=== PATIENT | female | born 1985 | race Caucasian/White ===

== ENCOUNTER 2017-05-15 18:21 | Emergency (ER) | payer OTHER ==
--- NOTE | 2017-05-15 20:04 | ED Physician Documentation ---
PD HPI URI - Stated complaint Stated Complaint: COUGH/EAR PX - Chief complaint Chief Complaint: Heent - History obtained from History obtained from: Patient - History of Present Illness Timing - onset: How many weeks ago (06/06) Timing duration: Weeks (06/06) Timing details: Gradual onset, Still present Associated symptoms: Ear pain (just the past 1-2 days), Dry cough (causing throat pain and headache from persistence of it.). No: Hemoptysis, Chest pain Contributing factors: No: Sick contact, Travel, Immunocompromised Worsened by: Other (coughin) Similar symptoms before: Has not had sx before Recently seen: Not recently seen Review of Systems Constitutional: reports: Chills, Myalgias, Fatigue. denies: Fever Ears: reports: Ear pain (for 2 days) Nose: reports: Congestion. denies: Sinus pressure / pain Throat: reports: Sore throat Respiratory: reports: Dyspnea, Cough. denies: Wheezing PD PAST MEDICAL HISTORY - Past Medical History Cardiovascular: None Respiratory: None Endocrine/Autoimmune: None IRS AGENT: Ovarian cysts - Past Surgical History Past Surgical 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 /IRS AGENT: section HEENT: Tonsil/Adenoidectomy - Present Medications Home Medications: Ambulatory Orders Medication Instructions Recorded Confirmed Albuterol Sulf [Ventolin Hfa 1 - 2 puffs INH Q4HR PRN #1 inhaler 05/15/17 Inhaler] Azithromycin [Zithromax] 250 mg PO DAILY #4 tablet 05/15/17 Benzonatate [Tessalon] 100 mg PO TID PRN #25 capsule 05/15/17 Dexamethasone [Decadron] 4 mg PO DAILY #5 tablet 05/15/17 Paroxetine HCl [Paxil] 20 mg PO DAILY 05/15/17 05/15/17 - Allergies Allergies/Adverse Reactions: Allergies Allergy/AdvReac Type Severity Reaction Status Date / Time NSAIDS (Non-Steroidal Allergy Severe Edema Verified 05/15/17 19:16 Anti-Inflamma Penicillins Allergy Severe Edema Verified 05/15/17 19:16 - Social History Does the pt smoke?: Yes Smoking Status: Current every day smoker Does the pt drink ETOH?: No Does the pt have substance abuse?: No - Immunizations Immunizations are current?: Yes - POLST Patient has POLST: No PD ED PE NORMAL - Vitals Vital signs reviewed: Yes - General General: Alert and oriented X 3, No acute distress, Well developed/nourished - HEENT HEENT: Pharynx benign. No: Ears normal (left is okay; right with redness and some distorted landmarks. ) - Neck Neck: Supple, no meningeal sign, Other (anterior adenopathy, mild, bilaterally. ) - Cardiac Cardiac: RRR, No murmur - Respiratory Respiratory: Clear bilaterally - Abdomen Abdomen: Soft, Non tender - Derm Derm: Normal color, Warm and dry, No rash Results - Vitals Vitals: Vital Signs - 24 hr 05/15/17 05/15/17 18:27 20:49 Temperature 36.7 C Heart Rate 113 H 94 Respiratory 18 18 Rate Blood Pressure 128/83 H 135/79 H O2 Saturation 95 96 Oxygen O2 Source Room air PD MEDICAL DECISION MAKING - ED course Complexity details: reviewed results, considered differential, d/w patient Departure - Departure Disposition: 01 Home, Self Care Clinical Impression: Upper respiratory infection Qualifiers: URI type: unspecified URI Qualified Code(s): J06.9 - Acute upper respiratory infection, unspecified Otitis media Qualifiers: Otitis media type: suppurative Chronicity: acute Laterality: right Recurrence: not specified as recurrent Spontaneous tympanic membrane rupture: without spontaneous rupture Qualified Code(s): H66.001 - Acute suppurative otitis media without spontaneous rupture of ear drum, right ear Condition: Stable Record reviewed to determine appropriate education?: Yes Instructions: ED Otitis Media Acute Adult, ED URI Viral W Wheezing Follow-Up: AMADEO LALA [Primary Care Provider] - Prescriptions: Albuterol Sulf [Ventolin Hfa Inhaler] 1 - 2 puffs INH Q4HR PRN #1 inhaler PRN Reason: Shortness Of Air/Wheezing Azithromycin [Zithromax] 250 mg PO DAILY #4 tablet Benzonatate [Tessalon] 100 mg PO TID PRN #25 capsule PRN Reason: Cough Dexamethasone [Decadron] 4 mg PO DAILY #5 tablet Comments: Use the albuterol inhaler 2 puffs 4 times a day for the next 7-10 days to decrease coughing and improve breathing. Decadron daily for 5 more days to decrease inflammation of the bronchioles and therefore less cough and better breathing. Tessalon if needed for cough. Drink lots of fluids. Zithromax for the ear infection and possible bronchitis, though both of these have a reasonable chance of being viral anyway but it is hard to tell that from bacterial. Recheck if not improving over the next several days. Once you are feeling better, the cough itself may persist some for another couple of weeks. Discharge Date/Time: 05/15/17 21:00
[2017-05-15] MEDS ORDERED: BENZONATATE 100 MG CAPSULE PO STA (20:16)
[2017-05-15] MEDS ORDERED: AZITHROMYCIN 250 MG TABLET PO STA (20:16)
[2017-05-15] MEDS ORDERED: HYDROcod/ACET 5/325 Prepack 6 PO ONE ×2 (20:16→20:27)
[2017-05-15] MEDS ORDERED: ALBUTEROL NEB 2.5 MG/3 ML INH STA (20:16)
[2017-05-15] MEDS ORDERED: DEXAMETHASONE 10 MG/ML VIAL PO STA (20:16)
[2017-05-15] MEDS ORDERED: BENZONATATE 100 MG CAPSULE PO ONE (20:26)
[2017-05-15] MEDS ORDERED: ALBUTEROL NEB 2.5 MG/3 ML INH ONE (20:26)
[2017-05-15] MEDS ORDERED: DEXAMETHASONE 10 MG/ML VIAL ONE (20:26)
[2017-05-15] MEDS ORDERED: AZITHROMYCIN 250 MG TABLET PO ONE (20:26)
[2017-05-15 20:50] VITALS: BP 135/79
== END 2017-05-15 21:00 | disposition home or self-care (01) ==
LOC: ED 18:21
DX: J06.9 Acute upper respiratory infection, unspecified (principal); H66.001 Acute suppurative otitis media without spontaneous rupture of ear drum, right ear; F17.200 Nicotine dependence, unspecified, uncomplicated
CPT/HCPCS: 94640; 99283; A9270; J7613

== ENCOUNTER 2018-03-11 18:13 | Emergency (ER) | payer OTHER ==
--- NOTE | 2018-03-11 18:33 | ED Physician Documentation ---
PD HPI LOWER EXT INJURY - Stated complaint Stated Complaint: LEFT ANKLE PX/FALL - Chief complaint Chief Complaint: Ext Problem - History obtained from History obtained from: Patient - History of Present Illness PD HPI LOW EXT INJURY LOCATION: Left, Foot Type of injury: Fall (She was standing up on a chair at home hanging some things and fell and hit her foot. This was today. She is unable to walk or bear weight. 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 - Past Surgical History Past Surgical 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 /ARMATURE INSPECTOR: section HEENT: Tonsil/Adenoidectomy - Present Medications Home Medications: Ambulatory Orders Medication Instructions Recorded Confirmed Knee Scooter 1 unit TD ONCE #1 03/11/18 Oxycodone HCl/Acetaminophen 1 - 2 each PO Q6H PRN #14 tablet 03/11/18 [Percocet 5-325 mg Tablet] - Allergies Allergies/Adverse Reactions: Allergies Allergy/AdvReac Type Severity Reaction Status Date / Time NSAIDS (Non-Steroidal Allergy Severe Edema Verified 03/11/18 18:19 Anti-Inflamma Penicillins Allergy Severe Edema Verified 03/11/18 18:19 - Social History Does the pt smoke?: Yes Smoking Status: Current every day smoker Does the pt drink ETOH?: No Does the pt have substance abuse?: No - Immunizations Immunizations are current?: Yes - POLST Patient has POLST: No PD ED PE NORMAL - Vitals Vital signs reviewed: Yes - General General: Alert and oriented X 3, No acute distress - Neck Neck: Supple, no meningeal sign, No bony TTP - Extremities Extremities: Other (Left foot: She is quite tender over the proximal forefoot, both in the middle and on the medial side. She has a mild small toenail injury. The ankle and proximal fibula are nontender.) - Neuro Neuro: Alert and oriented X 3, Normal speech Results - Vitals Vitals: Vital Signs - 24 hr 03/11/18 18:16 Temperature 36.5 C Heart Rate 85 Respiratory 18 Rate Blood Pressure 135/84 H O2 Saturation 100 Oxygen O2 Source Room air - Rads (name of study) L foot XR Radiology: EMP read contemporaneously (Concern for anterior Calcaneal fracture) CT L foot Radiology: EMP read contemporaneously (Nondisplaced fracture of the anterior superior process of the calcaneus) Procedures - Splint (location) LLE Splint applied by: Physician Type of splint: Other (Bulky Martinez splint without fiberglass) Other: Patient tolerated well, No complications, Neurovascular intact PD MEDICAL DECISION MAKING - Sepsis Event Vital Signs: Vital Signs - 24 hr 03/11/18 18:16 Temperature 36.5 C Heart Rate 85 Respiratory 18 Rate Blood Pressure 135/84 H O2 Saturation 100 Oxygen O2 Source Room air Departure - Departure Disposition: Home, Self Care Clinical Impression: Left calcaneal fracture Condition: Good Record reviewed to determine appropriate education?: Yes Instructions: ED Fx Foot Prescriptions: Knee Scooter 1 unit TD ONCE #1 Oxycodone HCl/Acetaminophen [Percocet 5-325 mg Tablet] 1 - 2 each PO Q6H PRN #14 tablet PRN Reason: pain Comments: Do not walk or bear weight on that leg. Use either the crutches with a knee scooter at all times. Do not take the splint off. Follow-up with the orthopedic surgeon on [facility]. Go to the [facility] tomorrow to check and make an appointment. Take the copy of the x-ray and CAT scan on CD with you. Return if worse. Elevate the leg as much as possible. Your blood pressure was elevated today on check into the emergency department. This does not mean that you have hypertension, it is a common phenomenon to come to the emergency department and have elevated blood pressure. I recommend that you see your primary care physician within the week to have it rechecked when you are feeling better. Do not drink or drive while taking narcotic pain medication. Note that many narcotic pain relievers also contain Tylenol/acetaminophen. Please ensure that your total dose of acetaminophen from all sources does not exceed 3 g (3000 mg) per day. You may get constipated while on this medication. Take a stool softener such as Colace twice a day while you are on it. Also add an [id number]-gnl-jeeewcu laxative such as senna or MiraLAX on any day that you do not have a bowel movement. If you received a narcotic pain medication or sedative while in the emergency department, do not drive for the next 24 hours. Discharge Date/Time: 03/11/18 20:35
--- NOTE | 2018-03-11 19:33 | XRAY Report ---
Reason: foot inj Procedure Date: 03/11/2018 Accession Number: [id number] / [id number] Procedure: XR - Foot 3 View LT CPT Code: FULL RESULT: EXAM: LEFT FOOT RADIOGRAPHY EXAM DATE: 03/11/2018 06:57 PM. CLINICAL HISTORY: Fall from chair. Foot injury. COMPARISON: None. TECHNIQUE: 3 views. FINDINGS: Bones: Oblique view demonstrates a distal calcaneal lucency concerning for nondisplaced fracture. Otherwise negative for traumatic or destructive bony abnormality. Joints: Normal. No subluxations. Soft Tissues: Unremarkable. IMPRESSION: Concern for nondisplaced distal calcaneal fracture on the oblique view. Otherwise, unremarkable left foot radiography. RADIA
[2018-03-11] MEDS ORDERED: oxyCODONE/ACET 5/325 Prepack 4 PO STA (20:15)
[2018-03-11 20:32] VITALS: BP 136/81
--- NOTE | 2018-03-11 20:41 | CT Report ---
Reason: poss calcaneal frx, fall Procedure Date: 03/11/2018 Accession Number: [id number] / [id number] Procedure: CT - Lower Extremity Left W/O CPT Code: FULL RESULT: EXAM: LEFT KNEE CT WITHOUT CONTRAST EXAM DATE: 03/11/2018 08:24 PM. CLINICAL HISTORY: Fall. Possible calcaneal fracture. COMPARISON: Radiograph from today. TECHNIQUE: Thin-section axial images were acquired of the knee without contrast. Post-processing: Coronal and sagittal reformats. Other: None. In accordance with CT protocol optimization, one or more of the following dose reduction techniques were utilized for this exam: automated exposure control, adjustment of mA and/or KV based on patient size, or use of iterative reconstructive technique. FINDINGS: Bones: There is a comminuted, nondisplaced fracture of the anterior superior process of the calcaneus. A benign bone island is in the talus. Joints: The joint spaces are preserved. No calcified loose bodies. No large effusion. Musculature: Normal. No fatty atrophy. Other: Heterotopic ossification in the dorsal talonavicular joint capsule indicates prior injury of that structure. IMPRESSION: Nondisplaced fracture of the anterior superior process of the calcaneus. RADIA
== END 2018-03-11 20:35 | disposition home or self-care (01) ==
LOC: ED 18:13
DX: F17.200 Nicotine dependence, unspecified, uncomplicated (principal); S92.025A Nondisplaced fracture of anterior process of left calcaneus, initial encounter for closed fracture; W07.XXXA Fall from chair, initial encounter; Y93.89 Activity, other specified
CPT/HCPCS: 29515; 99283

== ENCOUNTER 2018-05-27 00:16 | Outpatient (CLI) | payer OTHER | END 2018-05-27 00:17 | disposition EMS.NT | LOC: EMS 00:16 | PROVIDERS: ATTEND Surgery | DX: R05 Cough (principal); X00.8XXA Other exposure to uncontrolled fire in building or structure, initial encounter ==

== ENCOUNTER 2018-07-27 17:10 | Emergency (ER) | payer OTHER ==
[2018-07-27 17:20] VITALS: BP 146/102
--- NOTE | 2018-07-27 17:25 | ED Physician Documentation ---
PD HPI URI - Stated complaint Stated Complaint: FLU SYMPTOMS - Chief complaint Chief Complaint: Heent - History obtained from History obtained from: Patient - History of Present Illness Timing - onset: Today Timing duration: Days (1) Timing details: Gradual onset Pain level max: 0 Pain level now: 0 Associated symptoms: Fever, Nasal congestion, Rhinorrhea, Dry cough Improves by: Nothing Worsened by: Other (nothin) Recently seen: Not recently seen - Additional information Additional information: Mother and child with influenza A recently. Started feeling sick today. 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 - Past Surgical History Past Surgical 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 /RADIO MAINTAINER: section HEENT: Tonsil/Adenoidectomy - Present Medications Home Medications: Ambulatory Orders Medication Instructions Recorded Confirmed Knee Scooter 1 unit TD ONCE #1 03/11/18 Oxycodone HCl/Acetaminophen 1 - 2 each PO Q6H PRN #14 tablet 03/11/18 [Percocet 5-325 mg Tablet] Benzonatate [Tessalon Perle] 100 - 200 mg PO TID PRN #30 capsule 07/27/18 Oseltamivir [Tamiflu] 75 mg PO BID #10 capsule 07/27/18 - Allergies Allergies/Adverse Reactions: Allergies Allergy/AdvReac Type Severity Reaction Status Date / Time NSAIDS (Non-Steroidal Allergy Severe Edema Verified 07/27/18 17:20 Anti-Inflamma Penicillins Allergy Severe Edema Verified 07/27/18 17:20 - Social History Does the pt smoke?: Yes Smoking Status: Current every day smoker Does the pt drink ETOH?: No Does the pt have substance abuse?: No - Immunizations Immunizations are current?: Yes - POLST Patient has POLST: No PD ED PE NORMAL - Vitals Vital signs reviewed: Yes - General General: Alert and oriented X 3, No acute distress - HEENT HEENT: Ears normal, Moist mucous membranes, Pharynx benign - Neck Neck: Supple, no meningeal sign - Cardiac Cardiac: RRR, Strong equal pulses - Respiratory Respiratory: No respiratory distress, Clear bilaterally - Abdomen Abdomen: Soft, Non tender, Non distended - Derm Derm: Warm and dry, No rash - Extremities Extremities: No edema - Neuro Neuro: Alert and oriented X 3 - Psych Psych: Normal mood, Normal affect Results - Vitals Vitals: Vital Signs - 24 hr 07/27/18 17:11 Temperature 36.8 C Heart Rate 102 H Respiratory 18 Rate Blood Pressure 146/102 H O2 Saturation 99 Oxygen O2 Source Room air PD MEDICAL DECISION MAKING - ED course Complexity details: considered differential, d/w patient ED course: 33-year-old female with symptoms consistent with influenza. Recent exposure as well. Discussed risks and benefits of Tamiflu and she requested Tamiflu at this time. Will prescribe this for her. She is well-appearing, nontoxic. Patient counseled regarding signs and symptoms for which I believe and urgent re- evaluation would be necessary. Patient with good understanding of and agreement to plan and is comfortable going home at this time This document was made in part using voice recognition software. While efforts are made to proofread this document, sound alike and grammatical errors may occur. Departure - Departure Disposition: 01 Home, Self Care Clinical Impression: Influenza A Condition: Good Instructions: ED Flu Follow-Up: AMADEO LALA [Primary Care Provider] - Within 1 week Prescriptions: Benzonatate [Tessalon Perle] 100 - 200 mg PO TID PRN #30 capsule PRN Reason: Cough Oseltamivir [Tamiflu] 75 mg PO BID #10 capsule Comments: Go home and rest. Drink plenty of fluids. Return if you worsen. Discharge Date/Time: 07/27/18 17:29
== END 2018-07-27 17:29 | disposition home or self-care (01) ==
LOC: ED 17:10
DX: J10.1 Influenza due to other identified influenza virus with other respiratory manifestations (principal); F17.200 Nicotine dependence, unspecified, uncomplicated
CPT/HCPCS: 99283

== ENCOUNTER 2018-08-21 18:05 | Emergency (ER) | payer OTHER ==
--- NOTE | 2018-08-21 20:44 | XRAY Report ---
Reason: injury Procedure Date: 08/21/2018 Accession Number: [id number] / [id number] Procedure: XR - Elbow 3 View RT CPT Code: FULL RESULT: EXAM: RIGHT ELBOW RADIOGRAPHY EXAM DATE: 08/21/2018 08:17 PM. CLINICAL HISTORY: Elbow pain COMPARISON: None. TECHNIQUE: 3 views. FINDINGS: Bones: Normal. No fractures or bone lesions. Joints: Normal. No effusion. No subluxation. Soft Tissues: Normal. No soft tissue swelling. IMPRESSION: Negative elbow radiography. RADIA
--- NOTE | 2018-08-21 20:57 | ED Physician Documentation ---
PD HPI UPPER EXT INJURY - Stated complaint Stated Complaint: RIGHT ARM PAIN - Chief complaint Chief Complaint: Trauma Ext - History obtained from History obtained from: Patient - History of Present Illness Location: Right, Elbow Type of injury: Crush (van door was closed onto her right elbow, with pain laterally and with some soft tissue swelling. Hurts to bend/ROM of the elbow.) Where injury occurred: Home Timing - onset: Today Timing - details: Abrupt onset, Still present Worsened by: Moving, Palpating Associated symptoms: Swelling (lateral elbow and proximal forearm). 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 - Past Surgical History Past Surgical 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 /SUPERVISOR PROP MAKING: section HEENT: Tonsil/Adenoidectomy - Present Medications Home Medications: Ambulatory Orders Medication Instructions Recorded Confirmed Knee Scooter 1 unit TD ONCE #1 03/11/18 Oxycodone HCl/Acetaminophen 1 - 2 each PO Q6H PRN #14 tablet 03/11/18 [Percocet 5-325 mg Tablet] Benzonatate [Tessalon Perle] 100 - 200 mg PO TID PRN #30 capsule 07/27/18 Oseltamivir [Tamiflu] 75 mg PO BID #10 capsule 07/27/18 - Allergies Allergies/Adverse Reactions: Allergies Allergy/AdvReac Type Severity Reaction Status Date / Time NSAIDS (Non-Steroidal Allergy Severe Edema Verified 08/21/18 18:48 Anti-Inflamma Penicillins Allergy Severe Edema Verified 08/21/18 18:48 - Social History Does the pt smoke?: Yes Smoking Status: Current every day smoker Does the pt drink ETOH?: No Does the pt have substance abuse?: No - Immunizations Immunizations are current?: Yes - POLST Patient has POLST: No PD ED PE NORMAL - Vitals Vital signs reviewed: Yes - General General: Alert and oriented X 3, Well developed/nourished - Derm Derm: Normal color, Warm and dry - Extremities Extremities: Other (right lateral elbow and proximal forearm with local tenderness and mild swelling. No firmness of the tissue from swelling. antecubital area not focally tender. Guarded ROM of the elbow, but she can go to full extension slowly. No effusion of the elbow. ) - Neuro Neuro: Alert and oriented X 3, No motor deficit, No sensory deficit, Normal speech Results - Vitals Vitals: Oxygen O2 Source Room air - Rads (name of study) right elbow Radiology: Prelim report reviewed (no fractures.), EMP read contemporaneously, See rad report PD MEDICAL DECISION MAKING - ED course Complexity details: reviewed results (no fractures), considered differential, d/w patient Departure - Departure Disposition: 01 Home, Self Care Clinical Impression: Contusion of right elbow Qualifiers: Encounter type: initial encounter Qualified Code(s): S50.01XA - Contusion of right elbow, initial encounter Condition: Stable Record reviewed to determine appropriate education?: Yes Instructions: ED Contusion Elbow Follow-Up: AMADEO LALA [Primary Care Provider] - Comments: No fracture seen on x-ray. I presume will be sore for a couple a few days. Tylenol if needed for pains. Sling as needed for comfort and progress range of motion as able. Use of pain meds given tonight here if needed. I would not anticipate needing it longer than a day or so. Will likely be several days to week to be fully better. Discharge Date/Time: 08/21/18 22:32
[2018-08-21] MEDS ORDERED: ACETAMINOPHEN 325 MG TABLET PO STA (21:04)
[2018-08-21] MEDS ORDERED: HYDROcod/ACET 5/325 Prepack 4 PO STA (21:04)
[2018-08-21] MEDS ORDERED: oxyCODONE/ACET 5/325 Prepack 4 PO STA (21:28)
[2018-08-21 21:57] VITALS: BP 129/89
== END 2018-08-21 22:32 | disposition home or self-care (01) ==
LOC: ED 18:05
DX: S50.01XA Contusion of right elbow, initial encounter (principal); W23.0XXA Caught, crushed, jammed, or pinched between moving objects, initial encounter; Y92.810 Car as the place of occurrence of the external cause; F17.200 Nicotine dependence, unspecified, uncomplicated
CPT/HCPCS: 73080; 99282; 99283; A9270

== ENCOUNTER 2018-11-18 13:50 | Emergency (ER) | payer OTHER ==
[2018-11-18 14:03] VITALS: BP 145/86
--- NOTE | 2018-11-18 14:39 | ED Physician Documentation ---
PD HPI URI - Stated complaint Stated Complaint: COUGH/CONGESTION - Chief complaint Chief Complaint: Resp - History obtained from History obtained from: Patient - History of Present Illness Timing - onset: How many weeks ago (1) Timing details: Gradual onset, Still present (cough and dyspnea worse the past couple of days) Associated symptoms: Nasal congestion, Sore throat, Dry cough. 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 : None HEENT: None Psych: None Musculoskeletal: None Derm: None - Past Surgical History Past Surgical 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 /GERMAN TEACHER: section HEENT: Tonsil/Adenoidectomy - Present Medications Home Medications: Ambulatory Orders Medication Instructions Recorded Confirmed Benzonatate [Tessalon Perle] 100 - 200 mg PO TID PRN #30 capsule 07/27/18 Albuterol Sulf [Ventolin Hfa 1 - 2 puffs INH Q4HR PRN #1 inhaler 11/18/18 Inhaler] Benzonatate [Tessalon Perle] 100 - 200 mg PO TID PRN #30 capsule 11/18/18 Doxycycline Hyclate 100 mg PO BID #14 capsule 11/18/18 dexAMETHasone [Decadron] 4 mg PO DAILY #5 tablet 11/18/18 - Allergies Allergies/Adverse Reactions: Allergies Allergy/AdvReac Type Severity Reaction Status Date / Time NSAIDS (Non-Steroidal Allergy Severe Edema Verified 08/21/18 18:48 Anti-Inflamma Penicillins Allergy Severe Edema Verified 11/18/18 14:03 - Social History Does the pt smoke?: Yes Smoking Status: Current every day smoker Does the pt drink ETOH?: No Does the pt have substance abuse?: No - Immunizations Immunizations are current?: Yes - POLST Patient has POLST: No PD ED PE NORMAL - Vitals Vital signs reviewed: Yes - General General: Alert and oriented X 3, No acute distress, Well developed/nourished - HEENT HEENT: Ears normal, Pharynx benign - Neck Neck: Supple, no meningeal sign, No adenopathy - Cardiac Cardiac: RRR, No murmur - Respiratory Respiratory: Clear bilaterally - Derm Derm: Normal color, Warm and dry, No rash Results - Vitals Vitals: Oxygen O2 Source Room air PD MEDICAL DECISION MAKING - ED course Complexity details: considered differential, d/w patient Departure - Departure Disposition: 01 Home, Self Care Clinical Impression: Upper respiratory infection Qualifiers: URI type: unspecified URI Qualified Code(s): J06.9 - Acute upper respiratory infection, unspecified Condition: Stable Record reviewed to determine appropriate education?: Yes Instructions: ED URI Viral W Wheezing Follow-Up: AMADEO LALA [Primary Care Provider] - Prescriptions: Albuterol Sulf [Ventolin Hfa Inhaler] 1 - 2 puffs INH Q4HR PRN #1 inhaler PRN Reason: Shortness Of Air/Wheezing Benzonatate [Tessalon Perle] 100 - 200 mg PO TID PRN #30 capsule PRN Reason: Cough dexAMETHasone [Decadron] 4 mg PO DAILY #5 tablet Doxycycline Hyclate 100 mg PO BID #14 capsule Comments: Use the albuterol inhaler 2 to 3 puffs 4 times a day and extra times as needed for wheezing and cough. Decadron steroid for inflammation of the airways daily for the next 5 days. Add Tessalon if needed for cough suppression. Stay well- hydrated. These commonly are viral but sometimes will have a secondary bacterial component as in your case with the cough worsening. Add doxycycline antibiotic as directed. Recheck if not improving over the next few days and return if worsening. Discharge Date/Time: 11/18/18 16:09
[2018-11-18] MEDS ORDERED: BENZONATATE 100 MG CAPSULE PO STA (15:05)
[2018-11-18] MEDS ORDERED: ALBUTEROL NEB 2.5 MG/3 ML INH STA (15:05)
[2018-11-18] MEDS ORDERED: CHERRY SYRUP 10 ML UDC PO ONE (15:05)
[2018-11-18] MEDS ORDERED: DOXYCYCLINE 100 MG TABLET PO STA (15:05)
[2018-11-18] MEDS ORDERED: DEXAMETHASONE 10 MG/ML VIAL PO STA (15:05)
== END 2018-11-18 16:09 | disposition home or self-care (01) ==
LOC: ED 13:50
DX: J06.9 Acute upper respiratory infection, unspecified (principal); F17.200 Nicotine dependence, unspecified, uncomplicated
CPT/HCPCS: 94640; 99283; A9270

== ENCOUNTER 2018-11-29 14:41 | Emergency (ER) | payer OTHER ==
--- NOTE | 2018-11-29 14:58 | ED Physician Documentation ---
History of Present Illness - Stated complaint Stated Complaint: D/N LOSS OF APPETITE - Chief complaint Chief Complaint: Abd Pain - History obtained from History obtained from: Patient - Additonal information Additional information: Patient is a previously healthy 33-year-old female presenting with several days of general unwell feeling. Patient denies known fever, but reports difficulty with regulating her temperature. Patient denies chest pain or abdominal pain.However, she admits to nausea without vomiting and diarrhea. No urinary changes. Patient also reports lightheadedness. Patient saw her primary care physician yesterday who thought she was suffering from anxiety.No improving or worsening symptoms noted. Review of Systems Constitutional: denies: Fever Cardiac: denies: Chest pain / pressure GI: reports: Nausea. denies: Abdominal Pain, Vomiting, Diarrhea : denies: Dysuria PD PAST MEDICAL HISTORY - Past Medical History Cardiovascular: None Respiratory: None Neuro: None Endocrine/Autoimmune: None GI: None PATIENT ACCOUNTING REPRESENTATIVE: Ovarian cysts : None HEENT: None Psych: None Musculoskeletal: None Derm: None - Past Surgical History Past Surgical 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 /PATIENT ACCOUNTING REPRESENTATIVE: section HEENT: Tonsil/Adenoidectomy - Present Medications Home Medications: Ambulatory Orders Medication Instructions Recorded Confirmed No Known Home Medications 11/29/18 11/29/18 - Allergies Allergies/Adverse Reactions: Allergies Allergy/AdvReac Type Severity Reaction Status Date / Time NSAIDS (Non-Steroidal Allergy Severe Edema Verified 11/29/18 14:51 Anti-Inflamma Penicillins Allergy Severe Edema Verified 11/29/18 14:51 - Social History Does the pt smoke?: Yes Smoking Status: Current every day smoker Does the pt drink ETOH?: No Does the pt have substance abuse?: No - Immunizations Immunizations are current?: Yes - POLST Patient has POLST: No PD ED PE NORMAL - Vitals Vital signs reviewed: Yes - General General: Alert and oriented X 3, No acute distress, Well developed/nourished - HEENT HEENT: Atraumatic, Moist mucous membranes - Cardiac Cardiac: RRR, No murmur - Respiratory Respiratory: No respiratory distress, Clear bilaterally - Abdomen Abdomen: Soft, Non tender, Non distended - Derm Derm: Normal color, Warm and dry, No rash - Extremities Extremities: No deformity, No tenderness to palpate - Neuro Neuro: Alert and oriented X 3, No motor deficit, No sensory deficit - Psych Psych: Normal mood, Normal affect Results - Vitals Vitals: Vital Signs - 24 hr 11/29/18 14:45 Temperature 36.4 C L Heart Rate 90 Respiratory 18 Rate Blood Pressure 139/86 H O2 Saturation 97 Oxygen O2 Source Room air - Labs Labs: Laboratory Tests 11/29/18 11/29/18 11/29/18 15:42 15:42 16:45 WBC 11.3 H RBC 4.94 Hgb 14.8 Hct 43.5 MCV 88.1 MCH 30.0 MCHC 34.0 RDW 12.4 Plt Count 312 MPV 8.3 Neut # (Auto) 8.1 H Lymph # (Auto) 2.4 [place] # (Auto) 0.6 Eos # (Auto) 0.0 Baso # (Auto) 0.0 Absolute Nucleated RBC 0.00 Nucleated RBC % 0.0 Sodium 139 Potassium 3.6 Chloride 104 Carbon Dioxide 23 Anion Gap 12.0 BUN 13 Creatinine 0.9 Estimated GFR (MDRD) 72 L Glucose 91 Calcium 9.7 Total Bilirubin 0.9 AST 16 ALT 16 Alkaline Phosphatase 49 Total Protein 8.0 Albumin 4.7 Globulin 3.3 Albumin/Globulin Ratio 1.4 Lipase 25 Urine Color YELLOW Urine Clarity CLEAR Urine pH 6.0 Ur Specific [place] 1.015 Urine Protein NEGATIVE Urine Glucose (UA) NEGATIVE Urine Ketones 15 H Urine Occult Blood NEGATIVE Urine Nitrite NEGATIVE Urine Bilirubin NEGATIVE Urine Urobilinogen 0.2 (NORMAL) Ur Leukocyte Esterase NEGATIVE Ur Microscopic Review NOT INDICATED Urine Culture Comments NOT INDICATED Urine HCG, Qual NEGATIVE PD MEDICAL DECISION MAKING - ED course Complexity details: reviewed results, re-evaluated patient, considered differential, d/w patient ED course: Patient presenting with general unwell feeling a concern for dehydration as she has had limited oral intake. Patient started on IV fluids to address this issue. Patient also received Zofran. Remainder of physical exam is extremely unremarkable including no acute or surgical abdomen present. Patient denies abdominal pain and have very low suspicion for intra-abdominal pathology without discomfort including appendicitis, gallbladder disease, pancreatitis, small bowel obstruction, diverticulitis, renal disease, UTI, AAA, or pelvic etiologies such as ovarian torsion, but considered.Screening lab work and urinalysis obtained which was rather unremarkable except for presence of ketones in the urine.At this time, do not feel patient requires further invasive testing, imaging, hospitalization, but safely can be discharged home with supportive care s. Discussed diet hydration recommendations, as well as return precautions and follow-up. Patient voiced understanding and is comfortable with discharge plan. Departure - Departure Disposition: 01 Home, Self Care Clinical Impression: Nausea Condition: Good Follow-Up: AMADEO LALA [Primary Care Provider] - Within 3 Days Comments: Recommend Powerade/Gatorade for hydration and advancing diet as tolerated. Please follow-up with your primary care physician next to 3 days return to ED sooner if experience worsening symptoms or have other concerns. Discharge Date/Time: 11/29/18 17:16
[2018-11-29] MEDS ORDERED: SODIUM CHLORIDE 0.9% 1,000 ML IV ONE (15:02)
[2018-11-29] MEDS ORDERED: ONDANSETRON 4 MG/2 ML VIAL IVP STA (15:02)
[2018-11-29 15:45] LABS: BASOPHILS % (AUTO) 0.4 %; EOSINOPHILS % (AUTO) 0.2 %; HGB - HEMOGLOBIN 14.8 g/dL (12.0-16.0); LYMPHOCYTES # (AUTO) 2.4 10^3/uL (1.5-3.5); LYMPHOCYTES % (AUTO) 21.4 %; MEAN CORPUSCULAR VOLUME 88.1 fL (81.0-99.0); MEAN PLATELET VOLUME 8.3 fL (7.9-10.8); MONOCYTES # (AUTO) 0.6 10^3/uL (0.0-1.0); MONOCYTES % (AUTO) 5.5 %; NEUTROPHILS # (AUTO) 8.1 10^3/uL (1.5-6.6); NEUTROPHILS % (AUTO) 72.1 %; PLT - PLATELET COUNT 312 10^3/uL (130-450); RED BLOOD COUNT 4.94 10^6/uL (4.20-5.40); RED CELL DISTRIBUTION WIDTH 12.4 % (12.0-15.0); WHITE BLOOD COUNT 11.3 x10^3/uL (4.8-10.8)
[2018-11-29 16:03] LABS: ALBUMIN 4.7 g/dL (3.2-5.5); ALBUMIN/GLOBULIN RATIO 1.4 (1.0-2.2); BILIRUBIN,TOTAL 0.9 mg/dL (0.2-1.0); CALCIUM 9.7 mg/dL (8.5-10.3); CREATININE 0.9 mg/dL (0.4-1.0)
[2018-11-29 17:01] LABS: BILIRUBIN,URINE NEGATIVE (NEGATIVE); GLUCOSE, URINE (UA) NEGATIVE (NEGATIVE); KETONES,URINE (UA) 15 mg/dL (NEGATIVE); LEUKOCYTE ESTERASE, URINE NEGATIVE (NEGATIVE); NITRITE,URINE NEGATIVE (NEGATIVE); OCCULT BLOOD,URINE NEGATIVE (NEGATIVE); PROTEIN,URINE NEGATIVE (NEGATIVE); UROBILINOGEN,URINE 0.2 (NORMAL) E.U./dL (NORMAL)
[2018-11-29 17:03] LABS: CLARITY,URINE CLEAR (CLEAR); HCG UR QUAL NEGATIVE
[2018-11-29 17:33] VITALS: BP 128/81
== END 2018-11-29 17:35 | disposition home or self-care (01) ==
LOC: ED 14:41
DX: R11.0 Nausea (principal); R82.4 Acetonuria; F17.200 Nicotine dependence, unspecified, uncomplicated
CPT/HCPCS: 36415; 80053; 81001; 81003; 81025; 83690; 85025; 87086; 96361; 96374; 99282; 99283

== ENCOUNTER 2018-12-20 13:40 | Outpatient (CLI) | payer OTHER | END 2018-12-20 13:41 | disposition critical access hospital (66) | LOC: EMS 13:40 | PROVIDERS: ATTEND Surgery | DX: R42 Dizziness and giddiness (principal); R11.0 Nausea; R19.7 Diarrhea, unspecified; R20.2 Paresthesia of skin | CPT/HCPCS: A0425; A0429 ==

== ENCOUNTER 2018-12-20 14:04 | Emergency (ER) | payer OTHER ==
[2018-12-20] MEDS ORDERED: SODIUM CHLORIDE 0.9% 1,000 ML IV ONE ×3 (14:45→15:33)
[2018-12-20 14:59] LABS: BILIRUBIN,URINE NEGATIVE (NEGATIVE); GLUCOSE, URINE (UA) NEGATIVE (NEGATIVE); KETONES,URINE (UA) >=80 mg/dL (NEGATIVE); LEUKOCYTE ESTERASE, URINE NEGATIVE (NEGATIVE); NITRITE,URINE NEGATIVE (NEGATIVE); OCCULT BLOOD,URINE NEGATIVE (NEGATIVE); PH,URINE 5.5 PH (5.0-7.5); PROTEIN,URINE NEGATIVE (NEGATIVE); UROBILINOGEN,URINE 0.2 (NORMAL) E.U./dL (NORMAL)
[2018-12-20 15:00] LABS: CLARITY,URINE CLEAR (CLEAR); HCG UR QUAL NEGATIVE
[2018-12-20 15:10] LABS: BASOPHILS # (AUTO) 0.1 10^3/uL (0.0-0.1); BASOPHILS % (AUTO) 0.4 %; EOSINOPHILS % (AUTO) 0.1 %; HGB - HEMOGLOBIN 14.9 g/dL (12.0-16.0); LYMPHOCYTES % (AUTO) 16.1 %; MEAN CORPUSCULAR HEMOGLOBIN 30.2 pg (27.0-31.0); MEAN CORPUSCULAR HGB CONC 34.7 g/dL (32.0-36.0); MEAN CORPUSCULAR VOLUME 86.8 fL (81.0-99.0); MEAN PLATELET VOLUME 8.5 fL (7.9-10.8); MONOCYTES # (AUTO) 0.6 10^3/uL (0.0-1.0); MONOCYTES % (AUTO) 5.2 %; NEUTROPHILS # (AUTO) 9.4 10^3/uL (1.5-6.6); NEUTROPHILS % (AUTO) 77.7 %; PLT - PLATELET COUNT 345 10^3/uL (130-450); RED BLOOD COUNT 4.94 10^6/uL (4.20-5.40); RED CELL DISTRIBUTION WIDTH 12.7 % (12.0-15.0); WHITE BLOOD COUNT 12.1 x10^3/uL (4.8-10.8)
--- NOTE | 2018-12-20 15:13 | ED Physician Documentation ---
History of Present Illness - Stated complaint Stated Complaint: DIZZY - Chief complaint Chief Complaint: Abd Pain - History obtained from History obtained from: Patient - History of Present Illness Pain level max: 0 Pain level now: 0 - Additonal information Additional information: 33-year-old female states that she has had diarrhea for the past several weeks. Goes several times per day. No blood. No vomiting. No nausea. She states that she now feels lightheaded whenever she stands up. No fevers. No abdominal pain. She took Cymbalta for the first time last night. No other changes in her medications. Review of Systems Constitutional: denies: Fever, Chills Respiratory: denies: Cough GI: denies: Vomiting, Diarrhea : denies: Dysuria Skin: denies: Rash Musculoskeletal: denies: Neck pain, Back pain PD PAST MEDICAL HISTORY - Past Medical History Cardiovascular: None Respiratory: None Neuro: None Endocrine/Autoimmune: None GI: None INBOUND CALL CENTER REPRESENTATIVE: Ovarian cysts : None HEENT: None Psych: None Musculoskeletal: None Derm: None - Past Surgical History Past Surgical 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 /INBOUND CALL CENTER REPRESENTATIVE: section HEENT: Tonsil/Adenoidectomy - Present Medications Home Medications: Ambulatory Orders Medication Instructions Recorded Confirmed DULoxetine [Cymbalta] 20 mg PO DAILY 12/20/18 12/20/18 - Allergies Allergies/Adverse Reactions: Allergies Allergy/AdvReac Type Severity Reaction Status Date / Time NSAIDS (Non-Steroidal Allergy Severe Edema Verified 11/29/18 14:51 Anti-Inflamma Penicillins Allergy Severe Edema Verified 11/29/18 14:51 - Social History Does the pt smoke?: Yes Smoking Status: Current every day smoker Does the pt drink ETOH?: No Does the pt have substance abuse?: No - Immunizations Immunizations are current?: Yes - POLST Patient has POLST: No PD ED PE NORMAL - Vitals Vital signs reviewed: Yes - General General: Alert and oriented X 3, No acute distress, Well developed/nourished - HEENT HEENT: PERRL, Moist mucous membranes - Neck Neck: Supple, no meningeal sign - Cardiac Cardiac: RRR - Respiratory Respiratory: No respiratory distress, Clear bilaterally - Abdomen Abdomen: Soft, Non tender, Non distended - Back Back: No CVA TTP - Derm Derm: Warm and dry - Extremities Extremities: No edema, No calf tenderness / cord - Neuro Neuro: Alert and oriented X 3 - Psych Psych: Normal mood, Normal affect Results - Vitals Vitals: Vital Signs - 24 hr 12/20/18 12/20/18 14:10 16:09 Temperature 36.7 C 36.4 C L Heart Rate 86 102 H Respiratory 18 20 Rate Blood Pressure 138/90 H 147/96 H O2 Saturation 99 100 Oxygen O2 Source Room air - Labs Labs: Laboratory Tests 12/20/18 12/20/18 12/20/18 14:50 14:57 14:57 WBC 12.1 H RBC 4.94 Hgb 14.9 Hct 42.9 MCV 86.8 MCH 30.2 MCHC 34.7 RDW 12.7 Plt Count 345 MPV 8.5 Neut # (Auto) 9.4 H Lymph # (Auto) 2.0 [place] # (Auto) 0.6 Eos # (Auto) 0.0 Baso # (Auto) 0.1 Absolute Nucleated RBC 0.00 Nucleated RBC % 0.0 Sodium 138 Potassium 3.4 L Chloride 104 Carbon Dioxide 22 Anion Gap 12.0 BUN 14 Creatinine 0.7 Estimated GFR (MDRD) 96 Glucose 93 Calcium 9.4 Total Bilirubin 0.9 AST 31 ALT 40 Alkaline Phosphatase 51 Total Protein 8.2 Albumin 4.8 Globulin 3.4 Albumin/Globulin Ratio 1.4 Lipase 41 Urine Color YELLOW Urine Clarity CLEAR Urine pH 5.5 Ur Specific [place] 1.020 Urine Protein NEGATIVE Urine Glucose (UA) NEGATIVE Urine Ketones >=80 H Urine Occult Blood NEGATIVE Urine Nitrite NEGATIVE Urine Bilirubin NEGATIVE Urine Urobilinogen 0.2 (NORMAL) Ur Leukocyte Esterase NEGATIVE Ur Microscopic Review NOT INDICATED Urine Culture Comments NOT INDICATED Urine HCG, Qual NEGATIVE PD MEDICAL DECISION MAKING - ED course Complexity details: reviewed results, re-evaluated patient, considered differential, d/w patient ED course: 33-year-old female presents to the emergency department with what appears to be dehydration. Feels better after IV fluids. No significant lab abnormalities other than dehydration. Could also be coupled with her recent medication change. Patient is well-appearing, nontoxic. Afebrile. Patient counseled regarding signs and symptoms for which I believe and urgent re-evaluation would be necessary. Patient with good understanding of and agreement to plan and is comfortable going home at this time This document was made in part using voice recognition software. While efforts are made to proofread this document, sound alike and grammatical errors may occur. Departure - Departure Disposition: 01 Home, Self Care Clinical Impression: Dehydration Condition: Good Instructions: ED Dehydration Follow-Up: AMADEO LALA [Primary Care Provider] - Within 1 week Comments: Drink plenty of fluids. Follow-up with your doctor for further care. Return if you worsen. Discharge Date/Time: 12/20/18 16:12
[2018-12-20 15:16] LABS: ALBUMIN 4.8 g/dL (3.2-5.5); ALBUMIN/GLOBULIN RATIO 1.4 (1.0-2.2); BILIRUBIN,TOTAL 0.9 mg/dL (0.2-1.0); CALCIUM 9.4 mg/dL (8.5-10.3); CREATININE 0.7 mg/dL (0.4-1.0); TOTAL PROTEIN 8.2 g/dL (6.7-8.2)
[2018-12-20 16:10] VITALS: BP 147/96
== END 2018-12-20 16:12 | disposition home or self-care (01) ==
LOC: EDUNIT# → ED 14:04
DX: E86.0 Dehydration (principal); F17.200 Nicotine dependence, unspecified, uncomplicated
CPT/HCPCS: 36415; 80053; 81001; 81003; 81025; 83690; 85025; 87086; 96360; 99284

== ENCOUNTER 2019-02-12 17:09 | Emergency (ER) | payer OTHER ==
[2019-02-12 17:47] LABS: BASOPHILS # (AUTO) 0.1 10^3/uL (0.0-0.1); BASOPHILS % (AUTO) 0.7 %; EOSINOPHILS # (AUTO) 0.1 10^3/uL (0.0-0.7); EOSINOPHILS % (AUTO) 0.9 %; HGB - HEMOGLOBIN 15.8 g/dL (12.0-16.0); LYMPHOCYTES # (AUTO) 3.5 10^3/uL (1.5-3.5); LYMPHOCYTES % (AUTO) 26.8 %; MEAN CORPUSCULAR HGB CONC 33.6 g/dL (32.0-36.0); MEAN CORPUSCULAR VOLUME 89.4 fL (81.0-99.0); MEAN PLATELET VOLUME 8.4 fL (7.9-10.8); MONOCYTES # (AUTO) 0.9 10^3/uL (0.0-1.0); NEUTROPHILS # (AUTO) 8.3 10^3/uL (1.5-6.6); NEUTROPHILS % (AUTO) 64.1 %; PLT - PLATELET COUNT 313 10^3/uL (130-450); RED BLOOD COUNT 5.26 10^6/uL (4.20-5.40); RED CELL DISTRIBUTION WIDTH 13.1 % (12.0-15.0)
[2019-02-12 17:52] LABS: BILIRUBIN,URINE NEGATIVE (NEGATIVE); GLUCOSE, URINE (UA) NEGATIVE (NEGATIVE); KETONES,URINE (UA) NEGATIVE (NEGATIVE); LEUKOCYTE ESTERASE, URINE NEGATIVE (NEGATIVE); NITRITE,URINE NEGATIVE (NEGATIVE); OCCULT BLOOD,URINE NEGATIVE (NEGATIVE); PH,URINE 5.5 PH (5.0-7.5); PROTEIN,URINE NEGATIVE (NEGATIVE); UROBILINOGEN,URINE 0.2 (NORMAL) E.U./dL (NORMAL)
[2019-02-12 17:56] LABS: CLARITY,URINE CLEAR (CLEAR); HCG UR QUAL NEGATIVE
[2019-02-12 18:01] LABS: ALBUMIN 4.9 g/dL (3.2-5.5); ALBUMIN/GLOBULIN RATIO 1.5 (1.0-2.2); BILIRUBIN,TOTAL 0.3 mg/dL (0.2-1.0); CALCIUM 9.7 mg/dL (8.5-10.3); CREATININE 0.7 mg/dL (0.4-1.0); TOTAL PROTEIN 8.2 g/dL (6.7-8.2)
--- NOTE | 2019-02-12 19:54 | ED Physician Documentation ---
PD HPI ABD PAIN - Stated complaint Stated Complaint: LWR R ABD PAIN - Chief complaint Chief Complaint: Abd Pain - History obtained from History obtained from: Patient - History of Present Illness Timing - onset: How many days ago (2) Timing - duration: Days (2) Timing - details: Abrupt onset, Waxing and waning Quality: Cramping, Aching, Pain Location: RLQ Radiation: Lower back (right side). No: Chest, Left flank, Right flank Improved by: No: Eating Worsened by: No: Eating Associated symptoms: Nausea, Diarrhea (chronic related to PCOS). 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 DIGGER OPERATOR: Ovarian cysts : None HEENT: None Psych: None Musculoskeletal: None Derm: None - Past Surgical History Past Surgical 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 /POWER DIGGER OPERATOR: section HEENT: Tonsil/Adenoidectomy - Present Medications Home Medications: Ambulatory Orders Medication Instructions Recorded Confirmed DULoxetine [Cymbalta] 20 mg PO DAILY 12/20/18 12/20/18 Oxycodone HCl/Acetaminophen 1 - 2 each PO Q6H PRN #14 tablet 02/12/19 [Percocet 5-325 mg Tablet] dexAMETHasone [Decadron] 4 mg PO DAILY #5 tablet 02/12/19 - Allergies Allergies/Adverse Reactions: Allergies Allergy/AdvReac Type Severity Reaction Status Date / Time NSAIDS (Non-Steroidal Allergy Severe Edema Verified 11/29/18 14:51 Anti-Inflamma Penicillins Allergy Severe Edema Verified 11/29/18 14:51 - Social History Does the pt smoke?: Yes Smoking Status: Current every day smoker Does the pt drink ETOH?: No Does the pt have substance abuse?: No - Immunizations Immunizations are current?: Yes - POLST Patient has POLST: No PD ED PE NORMAL - Vitals Vital signs reviewed: Yes - General General: Alert and oriented X 3, Well developed/nourished, Other (Appears uncomfortable but she will be driving home so declines any pain meds here) - Neck Neck: Supple, no meningeal sign, No adenopathy - Cardiac Cardiac: RRR, No murmur - Respiratory Respiratory: Clear bilaterally - Abdomen Abdomen: Normal bowel sounds, Soft, Non distended, No organomegaly, Other (She is tender in the right suprapubic area. She is not tender per se at McBurney's point. There is some mild right CVA tenderness.) - Female Female : Deferred - Back Back: No spinal TTP - Derm Derm: Normal color, Warm and dry, No rash - Neuro Neuro: Alert and oriented X 3, No motor deficit, Normal speech Results - Vitals Vitals: Vital Signs - 24 hr 02/12/19 02/12/19 17:27 21:37 Temperature 36.5 C Heart Rate 109 H 93 Respiratory 18 14 Rate Blood Pressure 140/92 H 133/95 H O2 Saturation 100 100 Oxygen O2 Source Room air - Labs Labs: Laboratory Tests 02/12/19 02/12/19 02/12/19 17:40 17:41 17:41 WBC 13.0 H RBC 5.26 Hgb 15.8 Hct 47.0 MCV 89.4 MCH 30.0 MCHC 33.6 RDW 13.1 Plt Count 313 MPV 8.4 Neut # (Auto) 8.3 H Lymph # (Auto) 3.5 [place] # (Auto) 0.9 Eos # (Auto) 0.1 Baso # (Auto) 0.1 Absolute Nucleated RBC 0.00 Nucleated RBC % 0.0 Sodium 139 Potassium 3.6 Chloride 102 Carbon Dioxide 26 Anion Gap 11.0 BUN 14 Creatinine 0.7 Estimated GFR (MDRD) 96 Glucose 87 Calcium 9.7 Total Bilirubin 0.3 AST 25 ALT 30 Alkaline Phosphatase 59 Total Protein 8.2 Albumin 4.9 Globulin 3.3 Albumin/Globulin Ratio 1.5 Lipase 33 Urine Color YELLOW Urine Clarity CLEAR Urine pH 5.5 Ur Specific [place] <=1.005 Urine Protein NEGATIVE Urine Glucose (UA) NEGATIVE Urine Ketones NEGATIVE Urine Occult Blood NEGATIVE Urine Nitrite NEGATIVE Urine Bilirubin NEGATIVE Urine Urobilinogen 0.2 (NORMAL) Ur Leukocyte Esterase NEGATIVE Ur Microscopic Review NOT INDICATED Urine Culture Comments NOT INDICATED Urine HCG, Qual NEGATIVE - Rads (name of study) pelvic U/S Radiology: Prelim report reviewed (No cysts noted. Both ovaries have good blood flow. Trace free fluid but no significant amount of fluid collected.), See rad report PD MEDICAL DECISION MAKING - ED course Complexity details: considered differential (She says the pain feels similar to her other ovarian pain she has had before. She does not have any history of stones. She is been still have an appetite and able to eat and does not feel it is appendix. We will get a ultrasound to ensure good blood flow to both ovaries with no acute other process. Pain medicine if needed.), d/w patient ED course: She feels certain that its ovarian pain. There is no signs of cysts nor significant bleeding nor torsion. Her pain is in the right side but does not have tenderness per se at McBurney's point. I offered doing a CT scan of the area and need. She feels that unlikely that its appendix or kidney stone as to main concerning alternatives. We deferred further imaging after the ultrasound as a shared decision. She is to return if worsening or persistent pain or developing other symptoms such as fever. Departure - Departure Disposition: Home, Self Care Clinical Impression: Right lower quadrant abdominal pain Condition: Stable Record reviewed to determine appropriate education?: Yes Instructions: ED Abdominal Pain Unkn Cause Prescriptions: dexAMETHasone [Decadron] 4 mg PO DAILY #5 tablet Oxycodone HCl/Acetaminophen [Percocet 5-325 mg Tablet] 1 - 2 each PO Q6H PRN #14 tablet PRN Reason: pain Comments: Stay well-hydrated. Your ultrasound does not show any obvious cysts in the blood flow to the ovaries is good. There may be just some ovarian pain and we can treated with steroid anti-inflammatories and pain medicine. However return if not improving over the next couple of days or if you have other symptoms develop such as increased pain, more generalized area of pain, fevers, vomiting or other concerns. Discharge Date/Time: 02/12/19 21:57
[2019-02-12] MEDS ORDERED: ACETAMINOPHEN 500 MG TABLET PO STA (20:11)
[2019-02-12] MEDS ORDERED: oxyCODONE/ACET 5/325 Prepack 4 PO STA (20:12)
[2019-02-12] MEDS ORDERED: CHERRY SYRUP 10 ML UDC PO ONE (21:35)
[2019-02-12] MEDS ORDERED: DEXAMETHASONE 10 MG/ML VIAL PO STA (21:35)
[2019-02-12 21:38] VITALS: BP 133/95
--- NOTE | 2019-02-12 21:38 | Ultrasound Report ---
Reason: pelvic pain right, h/o cysts Procedure Date: 02/12/2019 Accession Number: [id number] / [id number] Procedure: US - Pelvic w/Transvag+Doppler Ltd CPT Code: FULL RESULT: EXAM: PELVIC ULTRASOUND WITH DOPPLERS CLINICAL HISTORY: Pelvic pain right, h/o cysts. COMPARISON: None. TECHNIQUE: Realtime transabdominal imaging performed to identify the uterus and adnexa and as an overview of other pelvic structures, followed by transvaginal imaging for better assessment of the endometrium and adnexa, with static image documentation. Color flow imaging and Doppler spectral analysis was performed to evaluate blood flow to the ovaries given pelvic pain and clinical concern for ovarian torsion. FINDINGS: Uterus: 9.9 x 4.8 x 4.9 cm, volume 120 cc. Anteverted position. Anterior subserosal fibroid measuring 2.5 x 2 x 2.4 cm. Endometrium: 12 mm. Normal. Cervix: Unremarkable. Right Ovary: 4 x 1.9 x 4 cm, volume 15.8 cc. Normal echotexture. Arterial and venous blood flow are present. PSV 14 cm/sec. RI 0.6. Adnexa are unremarkable. Left Ovary: 4.5 x 2.3 x 3.3 cm, volume 17.7 cc. Normal echotexture. Arterial and venous blood flow are present. PSV 19.6 cm/sec. RI 0.5. Adnexa are unremarkable. Free Fluid: None. IMPRESSION: 1. No acute findings. Anterior subserosal fibroid. 2. Arterial and venous blood flow are present to the ovaries bilaterally. RADIA
== END 2019-02-12 21:57 | disposition home or self-care (01) ==
LOC: ED 17:09
DX: R10.31 Right lower quadrant pain (principal); D25.2 Subserosal leiomyoma of uterus; F17.200 Nicotine dependence, unspecified, uncomplicated
CPT/HCPCS: 36415; 76830; 76856; 80053; 81003; 81025; 83690; 85025; 93976; 99284; A9270; 81001; 87086

== ENCOUNTER 2019-03-28 20:38 | Emergency (ER) | payer OTHER ==
[2019-03-28] MEDS ORDERED: AZITHROMYCIN 250 MG TABLET PO STA (21:01)
[2019-03-28] MEDS ORDERED: DEXAMETHASONE 10 MG/ML VIAL PO STA (21:01)
[2019-03-28] MEDS ORDERED: CHERRY SYRUP 10 ML UDC PO ONE (21:01)
--- NOTE | 2019-03-28 21:04 | ED Physician Documentation ---
PD HPI HEENT - Stated complaint Stated Complaint: BILAT EAR PX - Chief complaint Chief Complaint: Heent - History obtained from History obtained from: Patient - History of Present Illness Timing - onset: How many days ago (4) Timing - duration: Days (4) Timing - details: Gradual onset, Still present Location: Right ear Improves: Medication, Heat Associated symptoms: Congestion, Rhinorrhea, Cough Similar symptoms before: Diagnosis (OM) Recently seen: Not recently seen - Additional information Additional information: 33-year-old female with 2 children who are sick with otitis has developed symptoms of a cough congestion and right ear pain. She has had otitis previously it is been difficult to treat. She is allergic to penicillin. Review of Systems Constitutional: reports: Fever Eyes: denies: Decreased vision Ears: reports: Ear pain Nose: reports: Rhinorrhea / runny nose, Congestion Throat: reports: Sore throat Respiratory: reports: Cough GI: denies: Vomiting PD PAST MEDICAL HISTORY - Past Medical History Cardiovascular: None Respiratory: None Neuro: None Endocrine/Autoimmune: None GI: None NURSING SURGICAL SERVICES DIRECTOR: Ovarian cysts : None HEENT: None Psych: None Musculoskeletal: None Derm: None - Past Surgical History Past Surgical 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 /NURSING SURGICAL SERVICES DIRECTOR: section HEENT: Tonsil/Adenoidectomy - Present Medications Home Medications: Ambulatory Orders Medication Instructions Recorded Confirmed DULoxetine [Cymbalta] 20 mg PO DAILY 12/20/18 12/20/18 Oxycodone HCl/Acetaminophen 1 - 2 each PO Q6H PRN #14 tablet 02/12/19 [Percocet 5-325 mg Tablet] dexAMETHasone [Decadron] 4 mg PO DAILY #5 tablet 02/12/19 Azithromycin [Zithromax] 250 mg PO DAILY #4 tablet 03/28/19 - Allergies Allergies/Adverse Reactions: Allergies Allergy/AdvReac Type Severity Reaction Status Date / Time NSAIDS (Non-Steroidal Allergy Severe Edema Verified 03/28/19 20:56 Anti-Inflamma Penicillins Allergy Severe Edema Verified 03/28/19 20:56 - Social History Does the pt smoke?: Yes Smoking Status: Current every day smoker Does the pt drink ETOH?: No Does the pt have substance abuse?: No - Immunizations Immunizations are current?: Yes - POLST Patient has POLST: No PD ED PE NORMAL - Vitals Vital signs reviewed: Yes (hypertensive ) - General General: Alert and oriented X 3, No acute distress, Well developed/nourished - HEENT HEENT: Atraumatic, PERRL, EOMI, Other (The left TM is minimally inflamed the right is inflamed along the umbo with rounding of the umbo. 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 She is administered dexamethasone 10 mg orally and will place her on a course of azithromycin. She is given 500 mg here in the emergency department. Departure - Departure Disposition: 01 Home, Self Care Clinical Impression: Otitis media Qualifiers: Otitis media type: suppurative Chronicity: acute Laterality: bilateral Recurrence: recurrent Spontaneous tympanic membrane rupture: without spontaneous rupture Qualified Code(s): H66.006 - Acute suppurative otitis media without spontaneous rupture of ear drum, recurrent, bilateral Condition: Stable Instructions: ED Otitis Media Acute Adult Follow-Up: [facility] [Provider Group] Prescriptions: Azithromycin [Zithromax] 250 mg PO DAILY #4 tablet
[2019-03-28 21:20] VITALS: BP 138/89
== END 2019-03-28 21:20 | disposition home or self-care (01) ==
LOC: ED 20:38
DX: H66.006 Acute suppurative otitis media without spontaneous rupture of ear drum, recurrent, bilateral (principal); F17.200 Nicotine dependence, unspecified, uncomplicated; Z88.0 Allergy status to penicillin
CPT/HCPCS: 99282; 99284; A9270

== ENCOUNTER 2019-08-11 19:34 | Emergency (ER) | payer OTHER ==
--- NOTE | 2019-08-11 19:58 | ED Physician Documentation ---
History of Present Illness - Stated complaint Stated Complaint: FEVER,SORE THROAT,EAR PX - Chief complaint Chief Complaint: Heent - History obtained from History obtained from: Patient - Additonal information Additional information: Patient comes emergency department complaining of sore throat and bilateral ear pain that started today. Patient states she is also had fevers up to 102.With Tylenol, which she last took 2 hours ago, but that it keeps wanting to pop back up. Patient states she can get her temperature down to 99. Patient states she has been drinking plenty of fluids, because it makes her throat feel better. Patient states the throat pain and ear pain is sharp. She denies any swelling in her throat. She states she has had many ear infections as an adult, but no strep throat. Patient denies any rhinorrhea or cough. No nausea or vomiting. Patient states she feels chilled.No dysuria or back pain. No other complaints at this time. Patient is otherwise healthy. Review of Systems Ten Systems: 10 systems reviewed and negative Constitutional: reports: Fever, Chills Eyes: reports: Reviewed and negative Ears: reports: Ear pain Nose: reports: Reviewed and negative Throat: reports: Sore throat Cardiac: reports: Reviewed and negative Respiratory: reports: Reviewed and negative GI: reports: Reviewed and negative : reports: Reviewed and negative Skin: reports: Reviewed and negative Musculoskeletal: reports: Reviewed and negative Neurologic: reports: Reviewed and negative Psychiatric: reports: Reviewed and negative Endocrine: reports: Reviewed and negative Immunocompromised: reports: Reviewed and negative PD PAST MEDICAL HISTORY - Past Medical History Cardiovascular: None Respiratory: None Neuro: None Endocrine/Autoimmune: None GI: None 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: Ovarian cysts : None HEENT: None Psych: None Musculoskeletal: None Derm: None - Past Surgical History Past Surgical 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 /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: section HEENT: Tonsil/Adenoidectomy - Present Medications Home Medications: Ambulatory Orders Medication Instructions Recorded Confirmed DULoxetine [Cymbalta] 20 mg PO DAILY 12/20/18 12/20/18 Oxycodone HCl/Acetaminophen 1 - 2 each PO Q6H PRN #14 tablet 02/12/19 [Percocet 5-325 mg Tablet] dexAMETHasone [Decadron] 4 mg PO DAILY #5 tablet 02/12/19 Azithromycin [Zithromax] 250 mg PO DAILY #4 tablet 03/28/19 Hydrocodone/Acetaminophen 1 each PO QPM PRN #4 tablet 08/11/19 [Hydrocodon-Acetaminophen 5-325] - Allergies Allergies/Adverse Reactions: Allergies Allergy/AdvReac Type Severity Reaction Status Date / Time NSAIDS (Non-Steroidal Allergy Severe Edema Verified 08/11/19 19:50 Anti-Inflamma Penicillins Allergy Severe Edema Verified 08/11/19 19:50 - Social History Does the pt smoke?: Yes Smoking Status: Current every day smoker Does the pt drink ETOH?: No Does the pt have substance abuse?: No - Immunizations Immunizations are current?: Yes - POLST Patient has POLST: No PD ED PE NORMAL - Vitals Vital signs reviewed: Yes - General General: Alert and oriented X 3, No acute distress - HEENT HEENT: Atraumatic, PERRL, EOMI, Ears normal, Moist mucous membranes, Other (Mild erythema of the tonsils, without exudate or swelling.) - Neck Neck: Supple, no meningeal sign, No adenopathy - Cardiac Cardiac: RRR, No murmur - Respiratory Respiratory: No respiratory distress, Clear bilaterally - Abdomen Abdomen: Non distended - Derm Derm: Warm and dry - Extremities Extremities: No deformity, Normal ROM s pain - Neuro Neuro: Alert and oriented X 3, 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, No motor deficit, No sensory deficit, Normal speech, Other (Grossly normal) - Psych Psych: Normal mood, Normal affect Results - Vitals Vitals: Vital Signs - 24 hr 08/11/19 08/11/19 19:35 20:50 Temperature 37.2 C Heart Rate 130 H 97 Respiratory 16 18 Rate Blood Pressure 138/97 H 128/76 O2 Saturation 98 98 Oxygen O2 Source Room air - Labs Labs: Laboratory Tests 08/11/19 08/11/19 18:50 19:46 Influenza A (Rapid) Negative Influenza B (Rapid) Negative Group A Strep Rapid Negative PD MEDICAL DECISION MAKING - ED course Complexity details: reviewed results, re-evaluated patient, considered dif ferential, d/w patient ED course: Patient was afebrile in the emergency department, but was found to be somewhat tachycardic. She was encouraged to drink plenty of fluids. Her blood pressure was normal. She was worked up with influenza and strep testing, both of which were negative. We have discussed the results, as well as home management and the symptoms in the usual indications for return. We have also discussed follow-up. Departure - Departure Disposition: 01 Home, Self Care Clinical Impression: Acute otalgia, Pharyngitis, Viral syndrome Condition: Good Instructions: ED Pharyngitis Viral, ED Viral Syndrome Prescriptions: Hydrocodone/Acetaminophen [Hydrocodon-Acetaminophen 5-325] 1 each PO QPM PRN #4 tablet PRN Reason: pain Comments: Your influenza and strep tests are negative. Most likely, you have 1 of the many viruses that go around this time of year. As such, it will have to pass on its own and be followed off by your body's own immune system. You may use Tylenol as you have been doing to help with the discomfort. If you are having difficulty sleeping or the pain is difficult to bear, you may take the medication prescribed for pain instead of the Tylenol, as needed. Please follow-up with your doctor if you are not better in a week. Discharge Date/Time: 08/11/19 20:50
[2019-08-11 20:02] LABS: RAPID STREP SCREEN Negative (Negative)
[2019-08-11 20:51] VITALS: BP 128/76
== END 2019-08-11 20:50 | disposition home or self-care (01) ==
LOC: ED 19:34
DX: B34.9 Viral infection, unspecified (principal); J02.9 Acute pharyngitis, unspecified; H92.09 Otalgia, unspecified ear; F17.200 Nicotine dependence, unspecified, uncomplicated
CPT/HCPCS: 87070; 87275; 87276; 87430; 99283; 99284

== ENCOUNTER 2020-03-26 21:53 | Emergency (ER) | payer OTHER ==
[2020-03-26 21:59] VITALS: BP 148/97
--- NOTE | 2020-03-26 22:12 | ED Physician Documentation ---
History of Present Illness - Stated complaint Stated Complaint: COLD SX - Chief complaint Chief Complaint: General - History obtained from History obtained from: Patient - Additonal information Additional information: The patient presents with 4 days of cold symptoms. She has had nasal congestion, postnasal drip, sinus pressure, a nonproductive cough and a low- grade fever. She has had no rashes. 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 Review of Systems Ten Systems: 10 systems reviewed and negative Constitutional: reports: Fever, Fatigue Eyes: reports: Reviewed and negative Ears: reports: Other ("Plugged.") Nose: reports: Rhinorrhea / runny nose, Congestion, Sinus pressure / pain Throat: reports: Reviewed and negative Cardiac: reports: Reviewed and negative Respiratory: reports: Cough GI: reports: Reviewed and negative : reports: Reviewed and negative Skin: reports: Reviewed and negative Musculoskeletal: reports: Reviewed and negative Neurologic: reports: Reviewed and negative Psychiatric: reports: Reviewed and negative Endocrine: reports: Reviewed and negative Immunocompromised: reports: Reviewed and negative PD PAST MEDICAL HISTORY - Past Medical History Cardiovascular: None Respiratory: None Neuro: None Endocrine/Autoimmune: None GI: None 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: 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 : None HEENT: None Psych: None Musculoskeletal: None Derm: None - Past Surgical History Past Surgical 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 /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: section HEENT: Tonsil/Adenoidectomy - Present Medications Home Medications: Ambulatory Orders Medication Instructions Recorded Confirmed Omeprazole 1 tab PO DAILY 03/26/20 03/26/20 - Allergies Allergies/Adverse Reactions: Allergies Allergy/AdvReac Type Severity Reaction Status Date / Time NSAIDS (Non-Steroidal Allergy Severe Edema Verified 03/26/20 21:59 Anti-Inflamma Penicillins Allergy Severe Edema Verified 03/26/20 21:59 acetaminophen [From [place]] Allergy Nausea Verified 03/26/20 22:00 hydrocodone [From [place]] Allergy Nausea Verified 03/26/20 22:00 - Social History Does the pt smoke?: Yes Smoking Status: Current every day smoker Does the pt drink ETOH?: No Does the pt have substance abuse?: No - Immunizations Immunizations are current?: Yes - POLST Patient has POLST: No PD ED PE NORMAL - Vitals Vital signs reviewed: Yes - General General: No acute distress - HEENT HEENT: PERRL, EOMI, Ears normal, Moist mucous membranes, Pharynx benign - Neck Neck: Supple, no meningeal sign - Cardiac Cardiac: RRR, Other (Tachycardia) - Respiratory Respiratory: No respiratory distress, Clear bilaterally, Other (Mild cough during examination.) - Abdomen Abdomen: Normal bowel sounds, Soft, Non tender, No organomegaly - Derm Derm: Normal color, Warm and dry, No rash - Neuro Neuro: Normal speech Results - Vitals Vitals: Vital Signs - 24 hr 03/26/20 21:57 Temperature 36.8 C Heart Rate 115 H Respiratory 18 Rate Blood Pressure 148/97 H O2 Saturation 99 Oxygen O2 Source Room air - Labs Labs: COVID-19 has been ordered and the results are pending. PD MEDICAL DECISION MAKING - ED course Complexity details: other (Clinically, the patient appears to be suffering from a viral respiratory infection. She appears stable. Covid testing is pending.) Departure - Departure Disposition: 01 Home, Self Care Clinical Impression: Viral respiratory illness Condition: Stable Record reviewed to determine appropriate education?: Yes Instructions: ED Viral Syndrome Follow-Up: SHENA WONG ARNP [Primary Care Provider] - As Needed Comments: Self isolate at home pending the results of your Covid study. Contact EMS immediately and inform them of your pending Covid testing if any untoward symptoms or signs develop as discussed.
== END 2020-03-26 22:31 | disposition home or self-care (01) ==
LOC: ED 21:53
DX: J98.8 Other specified respiratory disorders (principal); B97.89 Other viral agents as the cause of diseases classified elsewhere; Z20.828 Contact with and (suspected) exposure to other viral communicable diseases; F17.200 Nicotine dependence, unspecified, uncomplicated
CPT/HCPCS: 99283

== ENCOUNTER 2020-11-20 09:50 | Emergency (ER) | payer OTHER ==
--- NOTE | 2020-11-20 10:07 | ED Physician Documentation ---
PD HPI SKIN - Stated complaint Stated Complaint: ALLERGIC REACTION - Chief complaint Chief Complaint: Allergic Rx - History obtained from History obtained from: Patient - History of Present Illness Timing - onset: How many days ago (2) Timing - duration: Days (2) Timing - details: Abrupt onset, Still present (bit by bug (prsumed mosquito) and had local swelling and itching that has not improved. Today with some feeling of maybe dyspnea. No feeling swelling of throat, lips, tongue.) Location: RLE (lateral right thigh) Quality / character: Itchy, Discolored (red locally, not expanding), Swelling. 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 before.) Review of Systems Constitutional: denies: Fever, Chills Nose: denies: Rhinorrhea / runny nose, Congestion Throat: denies: Sore throat Respiratory: denies: Cough GI: denies: Nausea, Vomiting, Diarrhea Neurologic: denies: Focal weakness, Numbness PD PAST MEDICAL HISTORY - Past Medical History Past Medical 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 Cardiovascular: None Respiratory: None Neuro: None Endocrine/Autoimmune: None GI: None 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 : None HEENT: None Psych: None Musculoskeletal: None Derm: None - Past Surgical History Past Surgical 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: section HEENT: Tonsil/Adenoidectomy - Present Medications Home Medications: Ambulatory Orders Medication Instructions Recorded Confirmed Omeprazole 1 tab PO DAILY 03/26/20 11/20/20 dexAMETHasone [Decadron] 4 mg PO DAILY #5 tablet 11/20/20 - Allergies Allergies/Adverse Reactions: Allergies Allergy/AdvReac Type Severity Reaction Status Date / Time NSAIDS (Non-Steroidal Allergy Severe Edema Verified 11/20/20 09:56 Anti-Inflamma Penicillins Allergy Severe Edema Verified 11/20/20 09:56 acetaminophen [From [place]] Allergy Nausea Verified 11/20/20 09:56 hydrocodone [From [place]] Allergy Nausea Verified 11/20/20 09:56 - Social History Does the pt smoke?: Yes Smoking Status: Current every day smoker Does the pt drink ETOH?: No Does the pt have substance abuse?: No - Immunizations Immunizations are current?: Yes - POLST Patient has POLST: No PD ED PE NORMAL - Vitals Vital signs reviewed: Yes - General General: Alert and oriented X 3, No acute distress, Well developed/nourished - HEENT HEENT: Ears normal, Moist mucous membranes, Pharynx benign (no noted edema) - Neck Neck: Supple, no meningeal sign, No adenopathy - Cardiac Cardiac: RRR, No murmur - Respiratory Respiratory: Clear bilaterally - Derm Derm: Normal color, Warm and dry - Extremities Extremities: Other (right lateral mid thigh with local area of redness with swelling, indistinct border of the area. No fluctuance nor vesicle. ) - Neuro Neuro: No motor deficit, No sensory deficit Results - Vitals Vitals: Vital Signs - 24 hr 11/20/20 11/20/20 09:54 10:47 Temperature 36.3 C L 36.9 C Heart Rate 81 73 Respiratory 16 16 Rate Blood Pressure 150/87 H 133/98 H O2 Saturation 100 98 Oxygen O2 Source Room air PD MEDICAL DECISION MAKING - ED course Complexity details: considered differential (has persistent itchiness, tender, swollen in area of bit, but not expanding. Presume still local reaction. Does not seem infectious as yet. ), d/w patient Departure - Departure Disposition: 01 Home, Self Care Clinical Impression: Bug bite of shoulder or upper arm Allergic reaction Qualifiers: Encounter type: initial encounter Qualified Code(s): T78.40XA - Allergy, unspecified, initial encounter Condition: Stable Record reviewed to determine appropriate education?: Yes Instructions: ED Allergic Reaction Local Other Prescriptions: dexAMETHasone [Decadron] 4 mg PO DAILY #5 tablet Comments: Continue with the Zyrtec once or twice daily as well as the Benadryl every 4-6 hours for itchiness. Cool towels to the area can help as well. We will add steroids dexamethasone daily for the next several days. There should have reasonable improvement through the day today. Recheck if signs of infection such as increasing redness, red streaks, lymph nodes or fever. Discharge Date/Time: 11/20/20 11:07
[2020-11-20] MEDS: DEXAMETHASONE 10 MG/ML VIAL PO STA (10:43)
[2020-11-20] MEDS: CHERRY SYRUP 10 ML UDC PO ONE (10:43)
[2020-11-20 10:47] VITALS: BP 133/98
== END 2020-11-20 11:07 | disposition home or self-care (01) ==
LOC: ED 09:50
DX: S70.361A Insect bite (nonvenomous), right thigh, initial encounter (principal); W57.XXXA Bitten or stung by nonvenomous insect and other nonvenomous arthropods, initial encounter; F17.200 Nicotine dependence, unspecified, uncomplicated
CPT/HCPCS: 99282; 99284; A9270

== ENCOUNTER 2020-12-12 19:31 | Emergency (ER) | payer OTHER ==
[2020-12-12 20:19] LABS: HCG UR QUAL NEGATIVE
[2020-12-12 20:20] LABS: GLUCOSE, URINE (UA) NEGATIVE (NEGATIVE); KETONES,URINE (UA) NEGATIVE (NEGATIVE); LEUKOCYTE ESTERASE, URINE MODERATE (NEGATIVE); NITRITE,URINE NEGATIVE (NEGATIVE); OCCULT BLOOD,URINE LARGE (NEGATIVE); PROTEIN,URINE 100 mg/dL (NEGATIVE); UROBILINOGEN,URINE 0.2 (NORMAL) E.U./dL (NORMAL)
[2020-12-12 20:23] LABS: BILIRUBIN,URINE NEGATIVE (NEGATIVE); CLARITY,URINE CLOUDY (CLEAR); ICTOTEST,URINE NEGATIVE
[2020-12-12 20:30] LABS: BACTERIA,URINE Few /HPF (None Seen); RBC,URINE TNTC /HPF (0-5); SQUAMOUS EPITHELIAL CELL,UR FEW Squamous (<= Few)
[2020-12-12] MEDS ORDERED: PHENAZOPYRIDINE 100 MG TABLET PO STA (20:46)
[2020-12-12] MEDS ORDERED: NITROFURANTOIN MACRO 100 MG CAPSULE PO STA (20:46)
--- NOTE | 2020-12-12 20:48 | ED Physician Documentation ---
PD HPI FEMALE - Stated complaint Stated Complaint: FEMALE - Chief complaint Chief Complaint: UTI - History obtained from History obtained from: Patient - Additional information Additional information: Sudden onset dysuria, frequency, and hematuria with mild low back pain starting about 4 hours ago. 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: section HEENT: Tonsil/Adenoidectomy - Present Medications Home Medications: Ambulatory Orders Medication Instructions Recorded Confirmed Nitrofurantoin [Macrobid] 1 cap PO BID #10 cap 12/12/20 Phenazopyridine HCl [Pyridium] 200 mg PO TID PRN #6 tablet 12/12/20 - Allergies Allergies/Adverse Reactions: Allergies Allergy/AdvReac Type Severity Reaction Status Date / Time NSAIDS (Non-Steroidal Allergy Severe Edema Verified 11/20/20 09:56 Anti-Inflamma Penicillins Allergy Severe Edema Verified 11/20/20 09:56 acetaminophen [From [place]] Allergy Nausea Verified 11/20/20 09:56 hydrocodone [From [place]] Allergy Nausea Verified 11/20/20 09:56 - Social History Does the pt smoke?: Yes Smoking Status: Current every day smoker Does the pt drink ETOH?: No Does the pt have substance abuse?: No - Immunizations Immunizations are current?: Yes - POLST Patient has POLST: No PD ED PE NORMAL - Vitals Vital signs reviewed: Yes - General General: Alert and oriented X 3, No acute distress - Abdomen Abdomen: Soft, Non tender - Back Back: No CVA TTP - Neuro Neuro: Alert and oriented X 3, Normal speech Results - Vitals Vitals: Vital Signs - 24 hr 12/12/20 19:34 Temperature 36.4 C L Heart Rate 100 Respiratory 16 Rate Blood Pressure 151/89 H O2 Saturation 100 Oxygen O2 Source Room air - Labs Labs: Laboratory Tests 12/12/20 20:00 Urine Color RED/BLOODY Urine Clarity CLOUDY Urine pH 6.0 Ur Specific [place] 1.015 Urine Protein 100 H Urine Glucose (UA) NEGATIVE Urine Ketones NEGATIVE Urine Occult Blood LARGE H Urine Nitrite NEGATIVE Urine Bilirubin NEGATIVE Urine Urobilinogen 0.2 (NORMAL) Ur Leukocyte Esterase MODERATE H Urine RBC TNTC H Urine WBC 6-10 H Ur Squamous Epith Cells FEW Squamous Urine Bacteria Few Ur Microscopic Review INDICATED Urine Culture Comments INDICATED Urine HCG, Qual NEGATIVE Departure - Departure Disposition: Home, Self Care Clinical Impression: Cystitis Condition: Good Record reviewed to determine appropriate education?: Yes Instructions: ED UTI Cystitis Female Prescriptions: Nitrofurantoin [Macrobid] 1 cap PO BID #10 cap Phenazopyridine HCl [Pyridium] 200 mg PO TID PRN #6 tablet PRN Reason: dysuria Comments: We will culture your urine, the results should be done in 48-72 hours. If an antibiotic change is necessary we will call you. Return if worse in the meantime, especially if you develop increasing flank pain, fevers, or cannot keep down the medication.
[2020-12-12 20:58] VITALS: BP 130/88
== END 2020-12-12 20:56 | disposition home or self-care (01) ==
LOC: ED 19:31
DX: N30.91 Cystitis, unspecified with hematuria (principal); F17.200 Nicotine dependence, unspecified, uncomplicated
CPT/HCPCS: 81001; 81025; 87086; 87181; 99283; A9270; 81003

== ENCOUNTER 2021-01-16 16:33 | Emergency (ER) | payer OTHER ==
[2021-01-16 16:44] VITALS: BP 138/83
[2021-01-16 17:20] LABS: BILIRUBIN,URINE NEGATIVE (NEGATIVE); GLUCOSE, URINE (UA) NEGATIVE (NEGATIVE); KETONES,URINE (UA) NEGATIVE (NEGATIVE); LEUKOCYTE ESTERASE, URINE SMALL (NEGATIVE); NITRITE,URINE POSITIVE (NEGATIVE); OCCULT BLOOD,URINE LARGE (NEGATIVE); PROTEIN,URINE 100 mg/dL (NEGATIVE); UROBILINOGEN,URINE 0.2 (NORMAL) E.U./dL (NORMAL)
[2021-01-16 17:23] LABS: CLARITY,URINE CLEAR (CLEAR); HCG UR QUAL NEGATIVE
[2021-01-16 17:25] LABS: BACTERIA,URINE Few /HPF (None Seen); RBC,URINE TNTC /HPF (0-5); SQUAMOUS EPITHELIAL CELL,UR FEW Squamous (<= Few); WBC,URINE >25 /HPF (0-5)
--- NOTE | 2021-01-16 17:25 | ED Physician Documentation ---
PD HPI FEMALE - Stated complaint Stated Complaint: FEMALE - Chief complaint Chief Complaint: UTI - History obtained from History obtained from: Patient - History of Present Illness Timing - onset: Today Timing - duration: Hours Timing - details: Abrupt onset, Still present Associated symptoms: Dysuria, Urinary frequency, Hematuria Similar symptoms before: Diagnosis (UTI) Recently seen: Not recently seen - Additional information Additional information: Previously well 35-year-old female began to develop some urinary symptoms this morning and she began to hydrate more vigorously and about 2 hours prior to coming in she has developed acute sowmya hematuria and she has come to the emergency department. She has had this symptoms previously with urinary tract infection. She had a pansensitive E. coli on her last visit and recovered without difficulty with the exception of a yeast vaginitis. 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 /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: section HEENT: Tonsil/Adenoidectomy - Present Medications Home Medications: Ambulatory Orders Medication Instructions Recorded Confirmed Nitrofurantoin [Macrobid] 1 cap PO BID #10 cap 12/12/20 Phenazopyridine HCl [Pyridium] 200 mg PO TID PRN #6 tablet 12/12/20 Fluconazole [Diflucan] 1 tablet PO ONCE #2 tablet 01/16/21 Sulfamethox/Trimeth 800/160 1 each PO BID #10 tablet 01/16/21 [Bactrim Ds] - Allergies Allergies/Adverse Reactions: Allergies Allergy/AdvReac Type Severity Reaction Status Date / Time NSAIDS (Non-Steroidal Allergy Severe Edema Verified 01/16/21 16:44 Anti-Inflamma Penicillins Allergy Severe Edema Verified 01/16/21 16:44 acetaminophen [From [place]] Allergy Nausea Verified 01/16/21 16:44 hydrocodone [From [place]] Allergy Nausea Verified 01/16/21 16:44 - Social History Does the pt smoke?: Yes Smoking Status: Current every day smoker Does the pt drink ETOH?: No Does the pt have substance abuse?: No - Immunizations Immunizations are current?: Yes - POLST Patient has POLST: No PD ED PE NORMAL - Vitals Vital signs reviewed: Yes (hypertensive ) - General General: Alert and oriented X 3, No acute distress, Well developed/nourished - HEENT HEENT: Atraumatic, PERRL, EOMI - Respiratory Respiratory: No respiratory distress - Back Back: No CVA TTP, No spinal TTP - Derm Derm: Normal color, Warm and dry, No rash - Extremities Extremities: No deformity, No edema - Neuro Neuro: Alert and oriented X 3, tack picker 2-12 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, No motor deficit, No sensory deficit, Normal speech Eye Opening: Spontaneous Motor: Obeys Commands Verbal: Oriented GCS Score: 15 - Psych Psych: Normal mood, Normal affect Results - Vitals Vitals: Vital Signs - 24 hr 01/16/21 16:41 Temperature 36.6 C Heart Rate 89 Respiratory 16 Rate Blood Pressure 138/83 H O2 Saturation 98 Oxygen O2 Source Room air - Labs Labs: Laboratory Tests 01/16/21 17:07 Urine Color RED/BLOODY Urine Clarity CLEAR Urine pH 7.0 Ur Specific [place] <=1.005 Urine Protein 100 H Urine Glucose (UA) NEGATIVE Urine Ketones NEGATIVE Urine Occult Blood LARGE H Urine Nitrite POSITIVE H Urine Bilirubin NEGATIVE Urine Urobilinogen 0.2 (NORMAL) Ur Leukocyte Esterase SMALL H Urine RBC TNTC H Urine WBC >25 H Ur Squamous Epith Cells FEW Squamous Urine Bacteria Few Ur Microscopic Review INDICATED Urine Culture Comments INDICATED Urine HCG, Qual NEGATIVE PD MEDICAL DECISION MAKING - ED course Complexity details: considered differential, d/w patient ED course: 35-year-old female with urinary tract infection. Departure - Departure Disposition: 01 Home, Self Care Clinical Impression: Urinary tract infection Qualifiers: Urinary tract infection type: acute cystitis Hematuria presence: with hematuria Qualified Code(s): N30.01 - Acute cystitis with hematuria Condition: Stable Instructions: ED UTI Cystitis Female Follow-Up: NASIMA Fernando [Provider Group] Prescriptions: Sulfamethox/Trimeth 800/160 [Bactrim Ds] 1 each PO BID #10 tablet Fluconazole [Diflucan] 1 tablet PO ONCE #2 tablet
== END 2021-01-16 17:33 | disposition home or self-care (01) ==
LOC: ED 16:33
DX: N30.01 Acute cystitis with hematuria (principal); F17.200 Nicotine dependence, unspecified, uncomplicated
CPT/HCPCS: 81001; 81003; 81025; 87086; 99283; 99284

== ENCOUNTER 2021-03-28 00:55 | Emergency (ER) | payer OTHER ==
[2021-03-28 01:06] VITALS: BP 133/87
[2021-03-28 01:17] LABS: BILIRUBIN,URINE NEGATIVE (NEGATIVE); GLUCOSE, URINE (UA) NEGATIVE (NEGATIVE); KETONES,URINE (UA) NEGATIVE (NEGATIVE); LEUKOCYTE ESTERASE, URINE MODERATE (NEGATIVE); NITRITE,URINE NEGATIVE (NEGATIVE); OCCULT BLOOD,URINE LARGE (NEGATIVE); PROTEIN,URINE TRACE mg/dL (NEGATIVE); UROBILINOGEN,URINE 0.2 (NORMAL) E.U./dL (NORMAL)
[2021-03-28 01:26] LABS: CLARITY,URINE CLEAR (CLEAR); HCG UR QUAL NEGATIVE
[2021-03-28 01:30] LABS: BACTERIA,URINE Few /HPF (None Seen); RBC,URINE TNTC /HPF (0-5); SQUAMOUS EPITHELIAL CELL,UR FEW Squamous (<= Few)
--- NOTE | 2021-03-28 02:04 | ED Physician Documentation ---
History of Present Illness - Stated complaint Stated Complaint: FEMALE - Chief complaint Chief Complaint: UTI - History obtained from History obtained from: Patient - Additonal information Additional information: 35yF with pmh chronic utis p/w dysuria, increased frequency, urgency since yesterday am. denies hematuria, fever/chills, abd pain. Review of Systems Constitutional: denies: Fever, Chills GI: denies: Abdominal Pain, Nausea : reports: Dysuria, Frequency. denies: Hematuria PD PAST MEDICAL HISTORY - Past Medical History Past Medical 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 Cardiovascular: None Respiratory: None Neuro: None Endocrine/Autoimmune: None GI: None CHIEF CONTROLLER: Ovarian cysts : Other HEENT: None Psych: None Musculoskeletal: None Derm: None Other Past Medical History: UTI - Past Surgical History Past Surgical 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 /CHIEF CONTROLLER: section HEENT: Tonsil/Adenoidectomy - Present Medications Home Medications: Ambulatory Orders Medication Instructions Recorded Confirmed Nitrofurantoin [Macrobid] 1 cap PO BID #10 cap 12/12/20 Phenazopyridine HCl [Pyridium] 200 mg PO TID PRN #6 tablet 12/12/20 Fluconazole [Diflucan] 1 tablet PO ONCE #2 tablet 01/16/21 Sulfamethox/Trimeth 800/160 1 each PO BID #10 tablet 01/16/21 [Bactrim Ds] Nitrofurantoin [Macrobid] 100 mg PO BID #14 tab 03/28/21 - Allergies Allergies/Adverse Reactions: Allergies Allergy/AdvReac Type Severity Reaction Status Date / Time NSAIDS (Non-Steroidal Allergy Severe Edema Verified 03/28/21 01:06 Anti-Inflamma Penicillins Allergy Severe Edema Verified 03/28/21 01:06 acetaminophen [From [place]] Allergy Nausea Verified 03/28/21 01:06 hydrocodone [From [place]] Allergy Nausea Verified 03/28/21 01:06 - Social History Does the pt smoke?: Yes Smoking Status: Current every day smoker Does the pt drink ETOH?: No Does the pt have substance abuse?: No - Immunizations Immunizations are current?: Yes - POLST Patient has POLST: No PD ED PE NORMAL - Vitals Vital signs reviewed: Yes - General General: Alert and oriented X 3, No acute distress, Well developed/nourished - HEENT HEENT: Atraumatic, PERRL, EOMI - Abdomen Abdomen: Non tender, Non distended - Back Back: No CVA TTP - Derm Derm: Normal color, Warm and dry - Extremities Extremities: No deformity Results - Vitals Vitals: Vital Signs - 24 hr 03/28/21 01:00 Temperature 36.5 C Heart Rate 89 Respiratory 16 Rate Blood Pressure 133/87 H O2 Saturation 100 Oxygen O2 Source Room air - Labs Labs: Laboratory Tests 03/28/21 01:05 Urine Color LT RED Urine Clarity CLEAR Urine pH 7.0 Ur Specific [place] 1.010 Urine Protein TRACE Urine Glucose (UA) NEGATIVE Urine Ketones NEGATIVE Urine Occult Blood LARGE H Urine Nitrite NEGATIVE Urine Bilirubin NEGATIVE Urine Urobilinogen 0.2 (NORMAL) Ur Leukocyte Esterase MODERATE H Urine RBC TNTC H Urine WBC 11-25 H Ur Squamous Epith Cells FEW Squamous Urine Bacteria Few Ur Microscopic Review INDICATED Urine Culture Comments INDICATED Urine HCG, Qual NEGATIVE PD MEDICAL DECISION MAKING - ED course ED course: 35-year-old woman presented with UTI. Antibiotics prescribed. Return precautions given. Patient will follow up with her primary doctor. Departure - Departure Disposition: 01 Home, Self Care Clinical Impression: UTI (urinary tract infection) Condition: Good Instructions: ED UTI Cystitis Female Prescriptions: Nitrofurantoin [Macrobid] 100 mg PO BID #14 tab Comments: You were seen in the emergency department for uti. Take your antibiotics as prescribed. Please return to the ED if you have any new or worsening symptoms or other concerns. Discharge Date/Time: 03/28/21 02:00
== END 2021-03-28 02:00 | disposition home or self-care (01) ==
LOC: ED 00:55
DX: N39.0 Urinary tract infection, site not specified (principal); F17.200 Nicotine dependence, unspecified, uncomplicated
CPT/HCPCS: 81001; 81003; 81025; 87086; 99283

== ENCOUNTER 2021-04-30 01:16 | Emergency (ER) | payer OTHER ==
[2021-04-30 01:31] VITALS: BP 140/93
--- NOTE | 2021-04-30 01:34 | ED Physician Documentation ---
PD HPI HEENT - Stated complaint Stated Complaint: NECK SWOLLEN, L EAR PX - Chief complaint Chief Complaint: Heent - History obtained from History obtained from: Patient - History of Present Illness Timing - onset: How many days ago (4-5) Timing - details: Gradual onset Location: Left ear Improves: Nothing Worsens: Swalllowing Associated symptoms: Swollen nodes, Other (Tmax a little over one-hundred (per patient)) Recently seen: Not recently seen - Additional information Additional information: c/o 4-5 days of sore throat, left ear pain and left neck tenderness and swelling. 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 : Other HEENT: None Psych: None Musculoskeletal: None Derm: None - Past Surgical History Past Surgical 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 /INSTRUMENT MAINTENANCE SUPERVISOR: section HEENT: Tonsil/Adenoidectomy - Present Medications Home Medications: Ambulatory Orders Medication Instructions Recorded Confirmed clindamycin HCL [Cleocin HCl] 300 mg PO QID #28 cap 05/01/21 - Allergies Allergies/Adverse Reactions: Allergies Allergy/AdvReac Type Severity Reaction Status Date / Time NSAIDS (Non-Steroidal Allergy Severe Edema Verified 04/30/21 01:31 Anti-Inflamma Penicillins Allergy Severe Edema Verified 04/30/21 01:31 acetaminophen [From [place]] Allergy Nausea Verified 04/30/21 01:31 hydrocodone [From [facility]] Allergy Nausea Verified 04/30/21 01:31 - Social History Does the pt smoke?: Yes Smoking Status: Current every day smoker Does the pt drink ETOH?: No Does the pt have substance abuse?: No - Immunizations Immunizations are current?: Yes - POLST Patient has POLST: No PD ED PE NORMAL - Vitals Vital signs reviewed: Yes - General General: Alert and oriented X 3, No acute distress, Well developed/nourished - HEENT HEENT: Ears normal, Pharynx benign - Neck Neck: Supple, no meningeal sign, Other (mild left neck anterior cervical tender adenopathy (palpable but not visible and without erythema or fluctuance)) Results - Vitals Vitals: Oxygen O2 Source Room air - Labs Labs: Microbiology 04/30/21 01:35 Group A Strep Throat Culture - Preliminary Throat CULTURE IN PROGRESS. RESULTS TO FOLLOW. Laboratory Tests 04/30/21 01:35 Group A Strep Rapid Negative PD MEDICAL DECISION MAKING - ED course Complexity details: reviewed results, considered differential, d/w patient ED course: rapid strep negative. Given 10mg PO decadron. Results reviewed. Antibiotics are not indicated at this time, but encouraged to return if worse, follow up with primary care provider next available appointment if symptoms do not resolve (within next few days) Departure - Departure Disposition: 01 Home, Self Care Clinical Impression: Pharyngitis Qualifiers: Pharyngitis/tonsillitis etiology: unspecified etiology Qualified Code(s): J02.9 - Acute pharyngitis, unspecified Condition: Good Instructions: ED Pharyngitis Viral Report Pending Discharge Date/Time: 04/30/21 02:28
[2021-04-30 01:48] LABS: RAPID STREP SCREEN Negative (Negative)
[2021-04-30] MEDS ORDERED: DEXAMETHASONE 10 MG/ML VIAL PO STA (01:51)
[2021-04-30] MEDS ORDERED: CHERRY SYRUP 10 ML UDC PO ONE (01:51)
== END 2021-04-30 02:28 | disposition home or self-care (01) ==
LOC: ED 01:16
DX: J02.9 Acute pharyngitis, unspecified (principal); F17.200 Nicotine dependence, unspecified, uncomplicated
CPT/HCPCS: 87070; 87430; 99282; 99283; A9270

== ENCOUNTER 2021-05-01 13:05 | Emergency (ER) | payer OTHER ==
[2021-05-01 13:26] VITALS: BP 124/78
[2021-05-01] MEDS ORDERED: CLINDAMYCIN 150 MG CAPSULE PO STA (16:09)
--- NOTE | 2021-05-01 16:11 | ED Physician Documentation ---
PD HPI HEENT - Stated complaint Stated Complaint: FEVER/NECK SWELLING - Chief complaint Chief Complaint: Heent - History obtained from History obtained from: Patient - Additional information Additional information: 36-year-old woman has been sick for about a week, was getting better but then got worse again over the last 24 hours with severe left-sided neck pain and fever to 103 this morning. She was seen last night and steroids were helpful. Rapid strep test was negative. Pain is radiating from the left submandibular area up towards the ear and down the left anterior neck. No neck stiffness. No sick contacts. Review of Systems Constitutional: reports: Reviewed and negative Eyes: reports: Reviewed and negative Ears: reports: Ear pain. denies: Loss of hearing Nose: denies: Rhinorrhea / runny nose Throat: reports: Sore throat PD PAST MEDICAL HISTORY - Past Medical History Cardiovascular: None Respiratory: None Neuro: None Endocrine/Autoimmune: None GI: None CHICKEN HANDLER: Ovarian cysts : Other HEENT: None Psych: None Musculoskeletal: None Derm: None - Past Surgical History Past Surgical 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 /CHICKEN HANDLER: section, Other HEENT: Tonsil/Adenoidectomy - Present Medications Home Medications: Ambulatory Orders Medication Instructions Recorded Confirmed clindamycin HCL [Cleocin HCl] 300 mg PO QID #28 cap 05/01/21 - Allergies Allergies/Adverse Reactions: Allergies Allergy/AdvReac Type Severity Reaction Status Date / Time NSAIDS (Non-Steroidal Allergy Severe Edema Verified 04/30/21 01:31 Anti-Inflamma Penicillins Allergy Severe Edema Verified 04/30/21 01:31 acetaminophen [From [place]] Allergy Nausea Verified 04/30/21 01:31 hydrocodone [From [place]] Allergy Nausea Verified 04/30/21 01:31 - Social History Does the pt smoke?: Yes Smoking Status: Current every day smoker Does the pt drink ETOH?: No Does the pt have substance abuse?: No - Immunizations Immunizations are current?: Yes - POLST Patient has POLST: No PD ED PE NORMAL - Vitals Vital signs reviewed: Yes - General General: Alert and oriented X 3, No acute distress - HEENT HEENT: Other (Tender swollen adenitis of the left anterior cervical chain, visualized portions the oropharynx appear normal. TMs are normal.) - Neck Neck: Supple, no meningeal sign - Neuro Neuro: Alert and oriented X 3, Normal speech Results - Vitals Vitals: Vital Signs - 24 hr 05/01/21 13:20 Temperature 36.8 C Heart Rate 112 H Respiratory 15 Rate Blood Pressure 124/78 O2 Saturation 99 Oxygen O2 Source Room air PD MEDICAL DECISION MAKING - ED course ED course: 36-year-old woman with what looks like infectious adenitis of the left anterior cervical chain treated with clindamycin noting penicillin allergy. Offered mono testing which was declined. Departure - Departure Disposition: Home, Self Care Clinical Impression: Cervical adenitis Condition: Good Record reviewed to determine appropriate education?: Yes Instructions: ED Cervical Adenitis Abx Tx Prescriptions: clindamycin HCL [Cleocin HCl] 300 mg PO QID #28 cap Comments: Prescription sent electronically to [facility]. Return if worsening or if not better in the next few days. Follow-up with your doctor in a week for recheck.
== END 2021-05-01 16:21 | disposition home or self-care (01) ==
LOC: ED 13:05
DX: L04.0 Acute lymphadenitis of face, head and neck (principal); Z88.0 Allergy status to penicillin; F17.200 Nicotine dependence, unspecified, uncomplicated
CPT/HCPCS: 99282; 99283; A9270

== ENCOUNTER 2021-08-13 08:00 | Outpatient (CLI) | payer OTHER ==
--- NOTE | 2021-08-13 17:20 | XRAY Report ---
PROCEDURE: Wrist 3 View LT INDICATIONS: CONTUSION OF LEFT WRIST TECHNIQUE: 3 views of the wrist were acquired. COMPARISON: None FINDINGS: Bones: No fractures or dislocations. No suspicious bony lesions. Soft tissues: No suspicious soft tissue calcifications. IMPRESSION: No fracture. No osseous lesion. If there are persistent symptoms or continued clinical concern for pa thology, then repeat plain film radiographs (7-10 days) or advanced imaging (CT, MR, bone scan) shoul d be considered for further evaluation. Reviewed by: Maggie Romero MD, PhD on 08/13/2021 5:19 PM PST Approved by: Maggie Romero MD, PhD on 08/13/2021 5:19 PM PST Station ID: [id number]
== END 2021-08-13 23:59 | disposition home or self-care (01) ==
LOC: DI.N 08:00
PROVIDERS: ATTEND Physician Assistant
DX: S60.212A Contusion of left wrist, initial encounter (principal)

== ENCOUNTER 2022-02-08 08:00 | Outpatient (CLI) | payer OTHER ==
--- NOTE | 2022-02-09 12:19 | XRAY Report ---
PROCEDURE: Thoracic Spine 3 View INDICATIONS: THORACIC BACK PX TECHNIQUE: 3 views of the thoracic spine were acquired. COMPARISON: X-ray thoracic spine, 01/06/2020. FINDINGS: Bones: No fractures or dislocations. No suspicious bony lesions. There is mild degenerative disc di sease in mid thoracic spine. 12 pairs of ribs are noted, and appear intact where visualized. Soft tissues: No paravertebral stripe thickening. IMPRESSION: Mild degenerative disc disease. Reviewed by: Yessy Renner MD on 02/09/2022 12:17 PM PDT Approved by: Yessy Renner MD on 02/09/2022 12:17 PM PDT Station ID: [id number]
== END 2022-02-08 23:59 | disposition home or self-care (01) ==
LOC: DI.N 08:00
PROVIDERS: ATTEND Registered Nurse
DX: M54.31 Sciatica, right side (principal); M51.34 Other intervertebral disc degeneration, thoracic region

== ENCOUNTER 2022-09-01 20:08 | Emergency (ER) | payer OTHER ==
[2022-09-01 20:34] VITALS: BP 145/92
[2022-09-01] MEDS ORDERED: LIDOCAINE PATCH 5% TOP STA (20:36)
--- NOTE | 2022-09-01 20:52 | ED Physician Documentation ---
History of Present Illness - Stated complaint Stated Complaint: FALL,RT SIDE PAIN - Chief complaint Chief Complaint: Trauma Ch/Bk - History obtained from History obtained from: Patient - Additonal information Additional information: Patient is a 37-year-old female presenting for evaluation of right-sided shoulder, elbow and chest pain since falling on the stairs this morning around 9:00. Patient states that her dog got in front of her making her fall and she braced herself against the stair way wall on the right side. She states that her right extremity put a hole through the wall.She denies hitting her head or having LOC. She reports that the pain in the right extremity has worsened throughout the day despite use of Tylenol.She denies prior injuries to this extremity. She does not take a blood thinner. 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 : Other HEENT: None Psych: None Musculoskeletal: None Derm: None - Past Surgical History Past Surgical 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 /TURBINE ASSEMBLER: section, Other HEENT: Tonsil/Adenoidectomy - Present Medications Home Medications: Ambulatory Orders Medication Instructions Recorded Confirmed clindamycin HCL [Cleocin HCl] 300 mg PO QID #28 cap 05/01/21 Cyclobenzaprine [Flexeril] 10 mg PO TID PRN #20 tablet 09/01/22 - Allergies Allergies/Adverse Reactions: Allergies Allergy/AdvReac Type Severity Reaction Status Date / Time NSAIDS (Non-Steroidal Allergy Severe Edema Verified 09/01/22 20:12 Anti-Inflamma Penicillins Allergy Severe Edema Verified 09/01/22 20:12 acetaminophen [From [place]] Allergy Nausea Verified 09/01/22 20:12 hydrocodone [From [place]] Allergy Nausea Verified 09/01/22 20:12 - Social History Does the pt smoke?: Yes Smoking Status: Current every day smoker Does the pt drink ETOH?: No Does the pt have substance abuse?: No - Immunizations Immunizations are current?: Yes - POLST Patient has POLST: No PD ED PE NORMAL - General General: Alert and oriented X 3, No acute distress, Well developed/nourished - HEENT HEENT: Atraumatic, Moist mucous membranes, Pharynx benign - Neck Neck: Supple, no meningeal sign, No bony TTP, C-Spine cleared by NEXUS criteria - Cardiac Cardiac: RRR, Other (Right-sided chest wall tenderness, no deformities, no crepitus, no bruising) - Respiratory Respiratory: No respiratory distress, Clear bilaterally - Abdomen Abdomen: Soft, Non tender, Non distended - Back Back: No spinal TTP - Extremities Extremities: No deformity, Other (Tenderness to right shoulder and elbow, no visible deformity, no clavicle tenderness, no tenderness over humerus; Full range of motion at right elbow, able to touch left shoulder with right hand,No tenderness over forearm or hand) - Neuro Neuro: Alert and oriented X 3, staff educator 2-12 intact, No motor deficit, No sensory deficit, Normal speech Eye Opening: Spontaneous Motor: Obeys Commands Verbal: Oriented GCS Score: 15 Results - Vitals Vitals: Vital Signs - 24 hr 09/01/22 09/01/22 20:12 20:33 Temperature 36.5 C Heart Rate 94 91 Respiratory 16 16 Rate Blood Pressure 145/94 H 145/92 H O2 Saturation 100 99 Oxygen O2 Source Room air PD Medical Decision Making - ED course Complexity details: reviewed results, re-evaluated patient, d/w patient ED course: Patient is a 37-year-old female presenting for evaluation of right upper extremity and chest wall pain after falling and catching herself with her right arm today. She did not have a head injury. Her C-spine is cleared by Nexus criteria. X-rays were obtained of the chest, right shoulder and right elbow which I reviewed and I see no signs of bony injury or pneumothorax. She does have good range of motion at these joints. I did offer a sling but patient declined. We discussed treatment options and she reports it feels that her arm is getting more stiff and tight and she agreed to trial of muscle relaxers along with continued anti-inflammatories.Patient is counseled on concerning symptoms to return for as well as need for close follow-up with PCP. Patient also requesting note for work as she works at the [employer] and her boss was wanting her to lift things earlier today which she was having difficulty in doing. Departure - Departure Disposition: 01 Home, Self Care Clinical Impression: Fall on stairs, Strain of upper arm, right, Chest wall pain Condition: Stable Instructions: ED Contusion Chest Wall, ED Sprain Shoulder Prescriptions: Cyclobenzaprine [Flexeril] 10 mg PO TID PRN #20 tablet PRN Reason: Spasms Comments: Your xrays do not show a broken or out of place bone but you Likely strained the muscles and ligaments in the right arm from your fall.Please continue with acetaminophen. I will also send a prescription for a muscle relaxer called Flexeril to [facility] in [place].I would Expect her symptoms to get better ov er the course of the next week but if you are having persistent symptoms then I would recommend close follow-up with your primary care doctor. I will also place you on work restrictions for the next several days so you do not further injure the area. Return to the ER with any worsening symptoms Or new concerns. Forms: Activity restrictions Discharge Date/Time: 09/01/22 22:20
[2022-09-01] MEDS ORDERED: CYCLOBENZAPRINE 10 MG Prepack 2 PO PRN (22:07)
--- NOTE | 2022-09-01 22:12 | XRAY Report ---
PROCEDURE: Shoulder 3 View RT INDICATIONS: fall/pain TECHNIQUE: 3 views of the shoulder were acquired. COMPARISON: None. FINDINGS: Bones: No fractures or dislocations. No suspicious bony lesions. Visualized ribs appear intact. Soft tissues: No suspicious soft tissue calcifications. IMPRESSION: 1. No fracture or dislocation. Reviewed by: Pradeep Savage MD on 09/01/2022 10:11 PM PDT Approved by: Pradeep Savage MD on 09/01/2022 10:11 PM PDT Station ID: [id number]
--- NOTE | 2022-09-01 22:12 | XRAY Report ---
PROCEDURE: Elbow 3 View RT INDICATIONS: fall/pain TECHNIQUE: 3 views of the elbow were acquired. COMPARISON: None. FINDINGS: Bones: No fractures or dislocations. No suspicious bony lesions. Soft tissues: No elbow joint effusion. No suspicious soft tissue calcifications. IMPRESSION: 1. No fracture or dislocation. Reviewed by: Pradeep Savage MD on 09/01/2022 10:10 PM PDT Approved by: Pradeep Savage MD on 09/01/2022 10:10 PM PDT Station ID: [id number]
--- NOTE | 2022-09-01 22:22 | XRAY Report ---
PROCEDURE: Chest 1 View X-Ray INDICATIONS: fall/R sided pain TECHNIQUE: One view of the chest was acquired. COMPARISON: None. FINDINGS: Surgical changes and devices: None. Lungs and pleura: No pleural effusions or pneumothorax. Lungs are clear. Mediastinum: Mediastinal contours appear normal. Heart size is normal. Bones and chest wall: No displaced rib fractures identified. No suspicious bony lesions. Overlying soft tissues appear unremarkable. IMPRESSION: 1. No acute cardiopulmonary disease. Reviewed by: Pradeep Savage MD on 09/01/2022 10:21 PM PDT Approved by: Pradeep Savage MD on 09/01/2022 10:21 PM PDT Station ID: [id number]
== END 2022-09-01 22:20 | disposition home or self-care (01) ==
LOC: ED 20:08
DX: S46.911A Strain of unspecified muscle, fascia and tendon at shoulder and upper arm level, right arm, initial encounter (principal); R07.89 Other chest pain; W10.9XXA Fall (on) (from) unspecified stairs and steps, initial encounter; F17.200 Nicotine dependence, unspecified, uncomplicated
CPT/HCPCS: 71045; 73030; 73080; 99283; 99284; A9270

== ENCOUNTER 2022-11-24 16:43 | Day surgery (SDC) | payer OTHER ==
[2022-11-24 17:06] LABS: BILIRUBIN,URINE NEGATIVE (NEGATIVE); GLUCOSE, URINE (UA) NEGATIVE (NEGATIVE); KETONES,URINE (UA) NEGATIVE (NEGATIVE); LEUKOCYTE ESTERASE, URINE NEGATIVE (NEGATIVE); NITRITE,URINE NEGATIVE (NEGATIVE); OCCULT BLOOD,URINE NEGATIVE (NEGATIVE); PH,URINE 6.5 PH (5.0-7.5); PROTEIN,URINE NEGATIVE (NEGATIVE); UROBILINOGEN,URINE 0.2 (NORMAL) E.U./dL (NORMAL)
--- NOTE | 2022-11-24 17:12 | ED Physician Documentation ---
History of Present Illness - Stated complaint Stated Complaint: ABD PX - Chief complaint Chief Complaint: Abd Pain - Additonal information Additional information: 37-year-old female presents emergency department for evaluation of 3 days focal right lower quadrant abdominal pain. She does have a history of ovarian cysts and had laparoscopic cystectomy about 20 years ago. She states that this pain is similar. She has taken ibuprofen and Tylenol without resolution of symptoms. No fevers. Some nausea but no vomiting. No diarrhea. No urinary symptoms. She is declining analgesia as she drove here and reports a history of allergy To radol Review of Systems Constitutional: reports: Reviewed and negative Cardiac: reports: Reviewed and negative Respiratory: reports: Reviewed and negative GI: reports: Abdominal Pain, Nausea. 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 : Other HEENT: None Psych: None Musculoskeletal: None Derm: None - Past Surgical History Past Surgical 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 /CABLE SPLICER HELPER: section, Other HEENT: Tonsil/Adenoidectomy - Present Medications Home Medications: Ambulatory Orders Medication Instructions Recorded Confirmed Eluryng 11/24/22 Semaglutide [Ozempic] 0.25 mg SQ ONCE 11/24/22 11/24/22 - Allergies Allergies/Adverse Reactions: Allergies Allergy/AdvReac Type Severity Reaction Status Date / Time NSAIDS (Non-Steroidal Allergy Severe Edema Verified 11/24/22 16:54 Anti-Inflamma Penicillins Allergy Severe Edema Verified 11/24/22 16:54 acetaminophen [From [place]] Allergy Nausea Verified 11/24/22 16:54 hydrocodone [From [place]] Allergy Nausea Verified 11/24/22 16:54 - Social History Does the pt smoke?: Yes Smoking Status: Current every day smoker Does the pt drink ETOH?: No Does the pt have substance abuse?: No - Immunizations Immunizations are current?: Yes - POLST Patient has POLST: No PD ED PE NORMAL - General General: Alert and oriented X 3. No: No acute distress (Appears uncomfortable. Holding right lower abdomen) - HEENT HEENT: PERRL - Cardiac Cardiac: RRR, No murmur, No gallop - Respiratory Respiratory: No respiratory distress, Clear bilaterally - Abdomen Abdomen: Normal bowel sounds, Soft, Non distended. No: Non tender (Focal right lower quadrant pelvic pain. + guarding) - Derm Derm: Normal color, Warm and dry Results - Vitals Vitals: Vital Signs - 24 hr 11/24/22 16:49 Temperature 36.3 C L Heart Rate 89 Respiratory 16 Rate Blood Pressure 148/99 H O2 Saturation 100 Oxygen O2 Source Room air - Labs Labs: Laboratory Tests 11/24/22 11/24/22 11/24/22 16:54 17:24 17:24 WBC 11.9 H RBC 4.87 Hgb 14.4 Hct 42.6 MCV 87.5 MCH 29.6 MCHC 33.8 RDW 12.7 Plt Count 293 MPV 8.8 Neut # (Auto) 7.4 H Lymph # (Auto) 3.7 [place] # (Auto) 0.6 Eos # (Auto) 0.1 Baso # (Auto) 0.1 Absolute Nucleated RBC 0.00 Nucleated RBC % 0.0 Sodium 138 Potassium 3.3 L Chloride 108 Carbon Dioxide 24 Anion Gap 6.0 BUN 12 Creatinine 0.8 Estimated GFR (MDRD) 80 L Glucose 91 Calcium 8.8 Total Bilirubin 0.4 AST 14 ALT 17 Alkaline Phosphatase 44 Total Protein 7.7 Albumin 4.5 Globulin 3.2 Albumin/Globulin Ratio 1.4 Lipase 48 Urine Color YELLOW Urine Clarity CLEAR Urine pH 6.5 Ur Specific [place] 1.015 Urine Protein NEGATIVE Urine Glucose (UA) NEGATIVE Urine Ketones NEGATIVE Urine Occult Blood NEGATIVE Urine Nitrite NEGATIVE Urine Bilirubin NEGATIVE Urine Urobilinogen 0.2 (NORMAL) Ur Leukocyte Esterase NEGATIVE Ur Microscopic Review NOT INDICATED Urine Culture Comments NOT INDICATED - Rads (name of study) Pelvic US Relevant Findings:: Final report received (7.3 cm right ovarian cyst. Arterial and venous blood flow noted.) PD Medical Decision Making - ED course Complexity details: reviewed results, re-evaluated patient, d/w patient, d/w hadoop consultant (James) ED course: 37-year-old female presents emergency department for evaluation of several days Focal right lower quadrant abdominal pain. Patient reports that she has a history of ovarian cysts and underwent laparoscopic cystectomy nearly 20 years ago in [place]. Pain has been fairly constant in nature. On presentation the emergency department she does appear uncomfortable and has focal pain in the right lower quadrant. I did obtain CBC, electrolytes. Per my interpretation no acute worrisome abnormalities were noted. Patient is afebrile. Her vital signs are normal for age. A pelvic ultrasound was completed and it shows a 7.3 cm right ovarian cyst. Radiologist documents that he feels there is arterial and venous flow however given the size of the cyst and location of the pain there is concern for intermittent torsion. I discussed this case with on-call OB/Guynn Dr. Ramirez. He is evaluated the patient and is planning to take her to surgery for laparoscopic cystectomy. Further care to be dictated by Dr. Ramirez and the surgical team Departure - Departure Disposition: ED Transfer to [facility] Clinical Impression: Right ovarian cyst Condition: Stable
[2022-11-24 17:17] LABS: CLARITY,URINE CLEAR (CLEAR)
[2022-11-24 17:33] LABS: BASOPHILS # (AUTO) 0.1 10^3/uL (0.0-0.1); BASOPHILS % (AUTO) 0.6 %; EOSINOPHILS # (AUTO) 0.1 10^3/uL (0.0-0.7); EOSINOPHILS % (AUTO) 0.6 %; HCT - HEMATOCRIT 42.6 % (37.0-47.0); HGB - HEMOGLOBIN 14.4 g/dL (12.0-16.0); LYMPHOCYTES # (AUTO) 3.7 10^3/uL (1.5-3.5); LYMPHOCYTES % (AUTO) 30.8 %; MEAN CORPUSCULAR HEMOGLOBIN 29.6 pg (27.0-31.0); MEAN CORPUSCULAR HGB CONC 33.8 g/dL (32.0-36.0); MEAN CORPUSCULAR VOLUME 87.5 fL (81.0-99.0); MEAN PLATELET VOLUME 8.8 fL (7.9-10.8); MONOCYTES # (AUTO) 0.6 10^3/uL (0.0-1.0); MONOCYTES % (AUTO) 5.4 %; NEUTROPHILS # (AUTO) 7.4 10^3/uL (1.5-6.6); NEUTROPHILS % (AUTO) 62.3 %; PLT - PLATELET COUNT 293 10^3/uL (130-450); RED BLOOD COUNT 4.87 10^6/uL (4.20-5.40); RED CELL DISTRIBUTION WIDTH 12.7 % (12.0-15.0); WHITE BLOOD COUNT 11.9 x10^3/uL (4.8-10.8)
[2022-11-24 17:46] LABS: ALBUMIN 4.5 g/dL (3.2-5.5); ALBUMIN/GLOBULIN RATIO 1.4 (1.0-2.2); BILIRUBIN,TOTAL 0.4 mg/dL (0.2-1.0); CALCIUM 8.8 mg/dL (8.5-10.3); CREATININE 0.8 mg/dL (0.4-1.0); POTASSIUM 3.3 mmol/L (3.5-5.0); TOTAL PROTEIN 7.7 g/dL (6.7-8.2)
--- NOTE | 2022-11-24 19:17 | Ultrasound Report ---
PROCEDURE: Pelvic w/Doppler Limited INDICATIONS: pelvic pain, R TECHNIQUE: Real-time transabdominal scanning was performed of the pelvic organs, with image documentation. Dopp ler interrogation was performed of the ovaries bilaterally. COMPARISON: None. FINDINGS: Uterus: Uterus is anteverted and normal in size at 12.3 x 3.8 x 5.8 cm. The myometrium is heterogen eous. The endometrium measures 6.6 mm in combined thickness. Ovaries: The right ovary measures 8.1 x 4.9 x 7.4 cm, with a calculated ovarian volume of 154 cc. T he left ovary measures 3.7 x 3.0 x 1.8 cm, with a calculated ovarian volume of 10 cc. Appropriate bl ood flow to the ovaries with Doppler interrogation. Less than 12 follicles can be seen in each ovar y. No adnexal masses are seen. Right ovarian cystic lesion measuring 7.3 x 4.1 x 6.4 cm. No internal complexity. Arterial and venous blood flow seen within the ovaries. Other: No pathologic free abdominal or pelvic fluid. IMPRESSION: Right ovarian cystic lesion without internal complexity measuring 7.3 cm. Arterial and venous blood f low noted. Recommend follow-up in 6-12 weeks given pain. Reviewed by: Troy Juarez on 11/24/2022 7:16 PM PDT Approved by: Troy Juarez on 11/24/2022 7:16 PM PDT Station ID: [id number]
--- NOTE | 2022-11-24 19:23 | CONSULTATION NOTE ---
Surgery Consult - Consult Date Consult Date: 11/24/22 - Chief Complaint Chief Complaint: Abdominal pain - Home Meds/Allergies Home Medications: Patient History Medication Instructions Recorded Confirmed Eluryng 11/24/22 Semaglutide [Ozempic] 0.25 mg SQ ONCE 11/24/22 11/24/22 Allergies/Adverse Reactions: Allergies Allergy/AdvReac Type Severity Reaction Status Date / Time NSAIDS (Non-Steroidal Allergy Severe Edema Verified 11/24/22 16:54 Anti-Inflamma Penicillins Allergy Severe Edema Verified 11/24/22 16:54 acetaminophen [From [place]] Allergy Nausea Verified 11/24/22 16:54 hydrocodone [From [place]] Allergy Nausea Verified 11/24/22 16:54 - Vital Signs Vital Signs: Last Vital Signs Temp 97.3 F L 11/24/22 16:49 Pulse 89 11/24/22 16:49 Resp 16 11/24/22 16:49 BP 148/99 H 11/24/22 16:49 Pulse Ox 100 11/24/22 16:49 O2 Flow Rate - Lab Results Result Diagrams: 11/24/22 17:24 11/24/22 17:24 - Consultation Note Consultation Note: Plan 37-year-old with intermittent right ovarian torsion 1. Ovarian torsion -Likely intermittent ovarian torsion given severity of pain and waxing waning of symptoms over the course of 3 days. A 7 cm cyst would certainly explain torsion. History of torsion on this ovary as well. -We did discuss the risks of surgery including infection, damage to other organs, loss of an ovary, bleeding. -We also discussed that while ovarian torsion is certainly likely and would explain her pain, it is entirely possible that we remove the cyst and her pain still is present. Patient is comfortable with this risk and says she would not regret the decision. HPI: 37-year-old presenting today with 3 days of right lower quadrant pain. She had an ovarian cystectomy approximate 20 years ago and feels like this is very similar. She has taken Tylenol without resolution. Denies vomiting, diarrhea, fever, chills. All other symptoms reviewed and were negative except per HPI. PMH Denies pertinent medical history PSH section x2 Laparoscopic right ovarian cystectomy Tonsillectomy SH Daily smoker. Denies alcohol and drugs Family History Noncontributory Allergies Toradol, NSAIDs, penicillins (says she is okay with cephalosporins) Medications No current medications Physical exam: General: Alert, oriented, no acute distress Head: Normal cephalic atraumatic Eyes: PERRLA, extraocular motions intact. Respiratory: Normal rate of respiration. No accessory muscle use, normal respiratory effort. Cardiovascular: Regular rate and rhythm Abdomen: Right lower quadrant moderate pain. Extremities: Normal range of motion Neuro: Oriented x3. Normal movements Psych: Appropriate mood and affect. Normal judgment and insight Pelvic ultrasound shows 7 cm right ovarian cyst. There is blood flow to the right, although it appears intermittent to me. Plan 37-year-old with intermittent right ovarian torsion 1. Ovarian torsion -Likely intermittent ovarian torsion given severity of pain and waxing waning of symptoms over the course of 3 days. A 7 cm cyst would certainly explain torsion. History of torsion on this ovary as well. -We did discuss the risks of surgery including infection, damage to other organs, loss of an ovary, bleeding. -We also discussed that while ovarian torsion is certainly likely and would explain her pain, it is entirely possible that we remove the cyst and her pain still is present. Patient is comfortable with this risk and says she would not regret the decision. -avoid NSAIDs. Pain control with tylenol and opioids.
[2022-11-24] MEDS ORDERED: HYDROmorphone 0.5 MG/0.5 ML SYRINGE IVP STA (19:32)
[2022-11-24] MEDS ORDERED: NALOXONE 0.4 MG/ML VIAL IVP PRN (20:04)
[2022-11-24] MEDS ORDERED: MORPHINE 2 MG/ML CARPUJECT IVP PRN (20:04)
[2022-11-24] MEDS ORDERED: ONDANSETRON 4 MG/2 ML VIAL IVP PRN (20:04)
[2022-11-24] MEDS ORDERED: ePHEDrine 50 MG/ML VIAL IVP PRN (20:04)
[2022-11-24] MEDS ORDERED: ATROPINE ABBOJECT 1 MG/10 ML SYRINGE IVP PRN (20:04)
[2022-11-24] MEDS ORDERED: fentaNYL 100 MCG/2 ML VIAL IVP PRN (20:04)
[2022-11-24] MEDS ORDERED: METOCLOPRAMIDE 10 MG/2 ML VIAL IVP PRN (20:04)
--- NOTE | 2022-11-24 20:04 | ANESTHESIA ---
Pre-Anesthesia VS, & Labs - Diagnosis Right ovarian cyst - Procedure laproscopic R ovarian cystectomy Vital Signs: Temp Pulse Resp BP Pulse Ox O2 Flow Rate 36.3 C L 89 16 148/99 H 100 11/24/22 16:49 11/24/22 16:49 11/24/22 16:49 11/24/22 16:49 11/24/22 16:49 Height: 5 ft 7 in Weight (kg): 78.471 kg Body Mass Index: 27.1 BMI Classification: Overweight - NPO >8 hours - Is Patient ?: No - Lab Results Current Lab Results: Laboratory Tests 11/24/22 17:24: Sodium 138, Potassium 3.3 L, Chloride 108, Carbon Dioxide 24, Anion Gap 6.0, BUN 12, Creatinine 0.8, Estimated GFR (MDRD) 80 L, Glucose 91, Calcium 8.8, Total Bilirubin 0.4, AST 14, ALT 17, Alkaline Phosphatase 44, Total Protein 7.7, Albumin 4.5, Globulin 3.2, Albumin/Globulin Ratio 1.4, Lipase 48 11/24/22 17:24: WBC 11.9 H, RBC 4.87, Hgb 14.4, Hct 42.6, MCV 87.5, MCH 29.6, MCHC 33.8, RDW 12.7, Plt Count 293, MPV 8.8, Neut # (Auto) 7.4 H, Lymph # (Auto) 3.7 H, [place] # (Auto) 0.6, Eos # (Auto) 0.1, Baso # (Auto) 0.1, Absolute Nucleated RBC 0.00, Nucleated RBC % 0.0 Fish Bones: 11/24/22 17:24 11/24/22 17:24 Home Medications and Allergies Home Medications: Ambulatory Orders Eluryng 11/24/22 Semaglutide [Ozempic] 0.25 mg SQ ONCE 11/24/22 Eluryng 11/24/22 Semaglutide [Ozempic] 0.25 mg SQ ONCE 11/24/22 Allergies/Adverse Reactions: Allergies Allergy/AdvReac Type Severity Reaction Status Date / Time NSAIDS (Non-Steroidal Allergy Severe Edema Verified 11/24/22 16:54 Anti-Inflamma Penicillins Allergy Severe Edema Verified 11/24/22 16:54 hydrocodone [From [place]] Allergy Nausea Verified 11/24/22 16:54 Anes History & Medical History - Anesthetic History Anesthesia Complications: reports: No previous complications Family history of Anesthesia Complications: Denies Family history of Malignant Hyperthermia: Denies - Medical History Cardiovascular: reports: None Pulmonary: reports: None Gastrointestinal: reports: None Urinary: reports: Other Neuro: reports: None Musculoskeletal: reports: None Endocrine/Autoimmune: reports: None Blood Disorders: reports: None Skin: reports: None Smoking Status: Current every day smoker - Surgical History Eyes Ears Nose Throat (EENT): reports: Tonsil/Adenoidectomy Gynecologic: reports: section, Other Exam General: Alert, Oriented x3, Cooperative Dental: WNL, Other (prominent incisors) Mouth Openin Fingerbreadth Neck Mobility: Normal Mallampati classification: II Thyromental Distance: 4-6 cm Respiratory: Lungs clear Cardiovascular: Regular rate Plan Anesthesia Type: General Consent for Procedure(s) Verified and Reviewed: Yes Code Status: Attempt Resuscitation ASA classification: 2-Mild systemic disease Is this case an emergency?: Yes
[2022-11-24 20:05] LABS: HCG UR QUAL NEGATIVE
[2022-11-24] MEDS ORDERED: METHYLENE BLUE 0.5% 50 MG/10 ML AMPULE ONE (20:22)
[2022-11-24] MEDS ORDERED: LIDOCAINE 1%-EPI 1:100000 20 ML MDV ONE (20:22)
[2022-11-24] MEDS ORDERED: BUPIVACAINE 0.25% PF 30 ML VIAL ONE (20:22)
[2022-11-24] MEDS ORDERED: fentaNYL 100 MCG/2 ML VIAL ONE ×2 (20:44→22:11)
[2022-11-24] MEDS ORDERED: MIDAZOLAM 2 MG/2 ML VIAL ONE (20:44)
[2022-11-24] MEDS ORDERED: PROPOFOL 200 MG/20 ML VIAL IVP ONE (20:45)
[2022-11-24] MEDS ORDERED: ACETAMINOPHEN 1,000 MG/100 ML 1,000 MG/100 ML BAG IV ONE (20:45)
[2022-11-24] MEDS ORDERED: DEXAMETHASONE 4 MG/ML VIAL ONE (20:45)
[2022-11-24] MEDS ORDERED: ONDANSETRON 4 MG/2 ML VIAL ONE (20:45)
[2022-11-24] MEDS ORDERED: LIDOCAINE-PF 2% 10 ML AMP SUBQ ONE (20:45)
[2022-11-24] MEDS ORDERED: LACTATED RINGERS 1,000 ML IV SCH (21:00)
[2022-11-24] MEDS ORDERED: ROCURONIUM 50 MG/5 ML VIAL ONE ×2 (21:13)
[2022-11-24] MEDS ORDERED: LIDOCAINE MPF 2%-EPI 1:200000 20 ML VIAL SUBQ ONE ×2 (21:28)
[2022-11-24] MEDS ORDERED: METHYLENE BLUE 0.5% 50 MG/10 ML AMPULE IR ONE (21:29)
[2022-11-24] MEDS ORDERED: BUPIVACAINE 0.5% PF 30 ML VIAL SUBQ ONE ×2 (21:29)
[2022-11-24] MEDS ORDERED: SUGAMMADEX 200 MG/2 ML VIAL IVP ONE (22:16)
--- NOTE | 2022-11-24 22:56 | OPERATIVE REPORT ---
Operative Report - General Procedure Date: 11/24/22 Planned Procedure: Laparoscopic right ovarian cystectomy Pre-Op Diagnosis: Ovarian torsion Procedure Performed: Laparoscopic right ovarian cystectomy Post Op Diagnosis: Same - Procedure Note Primary Surgeon: Arcadio Ramirez MD Secondary Surgeon: DEMIAN Najera Anesthesia Provider: Archana Rueda CRNA Anesthesia Technique: General LMA Pathology: Ovarian cyst IV Fluids (mL): 1,300 Estimated Blood Loss (mL): 75 Urine Output (mL): 100 Findings: Normal-appearing left ovary, fallopian tubes, uterus. Right ovary grossly enlarged. Normal-appearing appendix. Normal-appearing liver and gallbladder. Complications: None - Other Other Information/Narrative: Patient was taken to the OR and placed in the dorsal supine position and adequate anesthesia was obtained. Patient was prepped and draped in the usual fashion. Sponge stick was placed in the vagina. 2 mL of local anesthesia was used below the umbilicus. An 11 blade scalpel was used to incise the skin. Direct visual entry was used to place the infraumbilical trocar. Upon entering the peritoneal cavity, low flow was used to ensure appropriate positioning. Upon visualization of the abdominal cavity, high flow was then initiated. 2 additional trocars was placed under visualization in a similar fashion in the right and left lower quadrants. Visualization of the pelvis showed a grossly enlarged right ovarian cyst and as elevated a kinked IP ligament. The serosa of the cyst was incised with laparoscopic scissors. This is opened up approximately half the width of the cyst. It was shelled out. Approximately [address] through the removal of the cyst, we inadvertently ruptured the cyst. A suction alumina refinery operator was used to drain the cyst fluid from the cyst cavity. Graspers were used to grasp the cyst wall and remove it from the ovarian stroma. After removal of stroma, oozing bleeding was noted. Small amounts of cautery were used to stop this. However some slight oozing was still noted and Surgiflo was used. After this the pelvis was irrigated, but oozing was still noted, so the LigaSure device was again used to cauterize an oozing area on the bleeding edge. No active bleeding was noted, and a piece of Surgicel was placed inside the cavity and was closed. This was monitored as the pelvis was drained of fluid and cyst cavity was hemostatic. After visitation of the abdomen and not finding any significant blood, the abdomen was drained of CO2. The trocars were removed and all instruments removed from the belly. The port sites were closed with 3-0 Monocryl. They were covered with Dermabond. Sponge and needle counts were correct. Patient was taken to the PACU in stable condition. I appreciate the assistance of Kizzy Gasca during this procedure, and the assistance in retraction, visualization, dissection, and overall assistance during the case were instrumental to the patient's wellbeing.
[2022-11-24] MEDS ORDERED: ACETAMINOPHEN 500 MG TABLET PO PRN (22:58)
[2022-11-24] MEDS ORDERED: LACTATED RINGERS 600 ML IV ONE (23:08)
[2022-11-24] MEDS: HYDROmorphone 0.5 MG/0.5 ML SYRINGE IVP PRN ×2 (23:22→23:30)
[2022-11-24] MEDS ORDERED: HYDROmorphone 0.5 MG/0.5 ML SYRINGE ONE ×2 (23:25→23:33)
--- NOTE | 2022-11-24 23:53 | ANESTHESIA POST OP EVALUATION ---
Anesthesia Post Eval - Post Anesthesia Eval Vitals: Last Vital Signs Temp 36.6 C 11/24/22 23:45 Pulse 99 11/24/22 23:45 Resp 17 11/24/22 23:45 BP 139/82 H 11/24/22 23:45 Pulse Ox 97 11/24/22 23:45 O2 Flow Rate CV Function Including HR & BP: Stable Pain Control: Satisfactory Nausea & Vomiting: Negative Mental Status: Baseline Respiratory Status: Airway Patent Hydration Status: Satisfactory Anesthesia Complications: None
[2022-11-24] MEDS ORDERED: oxyCODONE 5 MG TABLET PO PRN (23:58)
[2022-11-25 04:07] LABS: HCG UR QUAL NEGATIVE
--- NOTE | 2022-11-25 04:13 | DISCHARGE SUMMARY ---
"Discharge Summary Admit Date: 11/24/22 Discharge Date: 11/25/22 Discharging Provider: Arcadio roach MD Code Status: Attempt Resuscitation Condition at Discharge: Stable Discharge Disposition: 01 Home, Self Care - DIAGNOSES Admission Diagnoses: Right ovarian torsion Right ovarian cyst Discharge Diagnoses with Status of Each Condition: Right ovarian torsion Right ovarian cyst Status post laparoscopic right ovarian cystectomy - HPI History of Present Illness: Subjective Patient reports she is doing well. Pain well controlled. RLQ pain much improved but mild to moderate diffuse pain from incisions. Tolerating p.o. intake Denies lightheadedness, dizziness Objective General: Alert, oriented, no apparent distress. Cardiovascular: Regular rate. Regular rhythm. Lungs: No increased work of breathing. Abdomen: Soft, appropriately tender. Incision clean, dry, intact. Extremities: No pain on palpation. No cords palpated. Distal pulses intact. - CONSULTS | PROCEDURES Procedures: Laparoscopic right ovarian cystectomy - HOSPITAL COURSE Hospital Course: Patient is admitted for severe pain with probable right intermittent torsion. She had a 7 cm cyst that was increasingly causing pain over the last 3 days. She was taken to the OR for laparoscopic cystectomy. Prior to completion of the cystectomy, the cyst ruptured. The cyst wall was then removed. Postoperatively, patient recovered well. No significant postoperative events and the patient was discharged home after overnight observation. - ALLERGIES Allergies/Adverse Reactions: Allergies Allergy/AdvReac Type Severity Reaction Status Date / Time NSAIDS (Non-Steroidal Allergy Severe Edema Verified 11/24/22 16:54 Anti-Inflamma Penicillins Allergy Severe Edema Verified 11/24/22 16:54 hydrocodone [From [place]] Allergy Nausea Verified 11/24/22 16:54 - MEDICATIONS Home Medications: Ambulatory Orders Medication Instructions Recorded Confirmed Eluryng 11/24/22 Semaglutide [Ozempic] 0.25 mg SQ ONCE 11/24/22 11/24/22 Oxycodone HCl/Acetaminophen 1 each PO Q4HR PRN #5 tablet 11/25/22 [Percocet 5-325 mg Tablet] - LABS Result Diagrams: 11/24/22 17:24 11/24/22 17:24 - FOLLOW UP Follow Up: With Arcadio Ramirez MD in 1-2 week - TIME SPENT Time Spent in Discharge (Minutes): 20"
[2022-11-25] MEDS ORDERED: oxyCODONE 5 MG TABLET ONE (05:40)
[2022-11-25] MEDS ORDERED: ONDANSETRON ODT 4 MG TABLET TL PRN (07:06)
[2022-11-25 07:44] LABS: BASOPHILS % (AUTO) 0.2 %; HCT - HEMATOCRIT 39.4 % (37.0-47.0); HGB - HEMOGLOBIN 13.4 g/dL (12.0-16.0); LYMPHOCYTES # (AUTO) 1.1 10^3/uL (1.5-3.5); LYMPHOCYTES % (AUTO) 8.7 %; MEAN CORPUSCULAR HEMOGLOBIN 29.7 pg (27.0-31.0); MEAN CORPUSCULAR VOLUME 87.4 fL (81.0-99.0); MEAN PLATELET VOLUME 9.1 fL (7.9-10.8); MONOCYTES # (AUTO) 0.5 10^3/uL (0.0-1.0); MONOCYTES % (AUTO) 4.1 %; NEUTROPHILS # (AUTO) 10.8 10^3/uL (1.5-6.6); NEUTROPHILS % (AUTO) 86.8 %; PLT - PLATELET COUNT 258 10^3/uL (130-450); RED BLOOD COUNT 4.51 10^6/uL (4.20-5.40); RED CELL DISTRIBUTION WIDTH 12.6 % (12.0-15.0); WHITE BLOOD COUNT 12.5 x10^3/uL (4.8-10.8)
--- NOTE | 2022-11-25 08:28 | PHARMACY PROGRESS NOTE ---
- Best Possible Medication History Admit Date and Time: Processed by: Nursing Medication History completed: Yes As the person ultimately responsible for medication therapy, providers are able to order a medication from an existing home medication list in [facility] via the "Reconcile Routine" prior to Confirmation of that medication by practice support specialist. Such practice is discouraged except when the physician, in their clinical judgment, deems that a medical need exists for a medication without regard to previous use.
[2022-11-25 08:31] VITALS: BP 130/82
[2022-11-25] MEDS ORDERED: LIDOCAINE-PF 2% 10 ML AMP SUBQ ONE (09:11)
== END 2022-11-25 10:05 | disposition home or self-care (01) ==
LOC: ED 16:43 → SDS 19:05 → MS2 23:32 → SDS 11-25 10:05
PROVIDERS: ATTEND Obstetrics & Gynecology
PROC: 0UB08ZZ Excision of Right Ovary, Via Natural or Artificial Opening Endoscopic (ICD-10-PCS; principal; 2022-11-24 20:30)
DX: N83.511 Torsion of right ovary and ovarian pedicle (principal); N83.291 Other ovarian cyst, right side; F17.200 Nicotine dependence, unspecified, uncomplicated
CPT/HCPCS: 36415; 58662; 76856; 80053; 81003; 81025; 83690; 85025; 93976; 99284; 99285; A9270; J0131; J1170; J7120; Q0162; 81001; 87086

== ENCOUNTER 2022-11-30 21:10 | Emergency (ER) | payer OTHER ==
[2022-11-30 21:41] LABS: BASOPHILS # (AUTO) 0.1 10^3/uL (0.0-0.1); BASOPHILS % (AUTO) 0.8 %; EOSINOPHILS # (AUTO) 0.1 10^3/uL (0.0-0.7); EOSINOPHILS % (AUTO) 1.1 %; LYMPHOCYTES # (AUTO) 4.1 10^3/uL (1.5-3.5); LYMPHOCYTES % (AUTO) 38.3 %; MEAN CORPUSCULAR HEMOGLOBIN 29.4 pg (27.0-31.0); MEAN CORPUSCULAR HGB CONC 34.1 g/dL (32.0-36.0); MEAN CORPUSCULAR VOLUME 86.1 fL (81.0-99.0); MEAN PLATELET VOLUME 8.5 fL (7.9-10.8); MONOCYTES # (AUTO) 0.7 10^3/uL (0.0-1.0); MONOCYTES % (AUTO) 6.3 %; NEUTROPHILS # (AUTO) 5.7 10^3/uL (1.5-6.6); NEUTROPHILS % (AUTO) 53.3 %; PLT - PLATELET COUNT 308 10^3/uL (130-450); RED BLOOD COUNT 4.76 10^6/uL (4.20-5.40); RED CELL DISTRIBUTION WIDTH 12.5 % (12.0-15.0); WHITE BLOOD COUNT 10.8 x10^3/uL (4.8-10.8)
[2022-11-30 21:52] LABS: ALBUMIN 4.4 g/dL (3.2-5.5); ALBUMIN/GLOBULIN RATIO 1.4 (1.0-2.2); BILIRUBIN,TOTAL 0.6 mg/dL (0.2-1.0); CALCIUM 9.1 mg/dL (8.5-10.3); CREATININE 0.8 mg/dL (0.4-1.0); POTASSIUM 3.3 mmol/L (3.5-5.0); TOTAL PROTEIN 7.6 g/dL (6.7-8.2)
--- NOTE | 2022-11-30 22:20 | ED Physician Documentation ---
History of Present Illness - Stated complaint Stated Complaint: FEVER - Chief complaint Chief Complaint: Fever - History obtained from History obtained from: Patient - Additonal information Additional information: The patient comes to the emergency department with chief complaint of pain and low-grade fever after an ovarian cyst removal last week. She states that things seem to be getting better after the surgery, but over the last couple days, she has noticed increasing right lower quadrant pain and yesterday had a temp up to 100.9. The patient denies any other symptoms. No dysuria, vomiting, diarrhea, or respiratory symptoms. She states that she did start having vaginal bleeding which she thinks seems like her period, although she is only long-term through her cycle. The patient states she did have a Wheeler catheter during her surgery and stay. No other complaints at this time. The patient states she is otherwise healthy. 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 : Other HEENT: None Psych: None Musculoskeletal: None Derm: None - Past Surgical History Past Surgical 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 /FRAUD INVESTIGATOR: section, Other HEENT: Tonsil/Adenoidectomy - Present Medications Home Medications: Ambulatory Orders Medication Instructions Recorded Confirmed Semaglutide [Ozempic] 0.25 mg SQ ONCE 11/24/22 11/30/22 Etonogestrel/Ethinyl Estradiol 1 each VG Q28D 11/25/22 11/30/22 [Nuvaring Vaginal Ring] Ondansetron HCl 4 mg PO Q6HR PRN #10 tablet 11/25/22 Oxycodone HCl/Acetaminophen 1 each PO Q4HR PRN #5 tablet 11/25/22 [Percocet 5-325 mg Tablet] - Allergies Allergies/Adverse Reactions: Allergies Allergy/AdvReac Type Severity Reaction Status Date / Time NSAIDS (Non-Steroidal Allergy Severe Edema Verified 11/24/22 16:54 Anti-Inflamma Penicillins Allergy Severe Edema Verified 11/24/22 16:54 hydrocodone [From [place]] Allergy Nausea Verified 11/24/22 16:54 - Social History Does the pt smoke?: Yes Smoking Status: Current every day smoker Does the pt drink ETOH?: No Does the pt have substance abuse?: No - Immunizations Immunizations are current?: Yes - POLST Patient has POLST: No PD ED PE NORMAL - Vitals Vital signs reviewed: Yes - General General: Alert and oriented X 3, No acute distress, Well developed/nourished - HEENT HEENT: Atraumatic, PERRL, EOMI, Moist mucous membranes - Neck Neck: Supple, no meningeal sign - Cardiac Cardiac: RRR, No murmur - Respiratory Respiratory: No respiratory distress, Clear bilaterally - Abdomen Abdomen: Soft, Non tender (The patient has small incisions in her umbilicus and bilateral lower quadrants which are clean dry and intact without erythema or induration. Mild tenderness throughout entire abdomen slightly worse in the right lower quadrant, no rebound or guarding.), Non distended - Derm Derm: Warm and dry - Extremities Extremities: No deformity - Neuro Neuro: Alert and oriented X 3 - Psych Psych: Normal mood, Normal affect Results - Vitals Vitals: Vital Signs - 24 hr 11/30/22 11/30/22 11/30/22 21:13 21:44 22:12 Temperature 36.6 C Heart Rate 105 H Respiratory 18 17 18 Rate Blood Pressure 145/100 H O2 Saturation 98 11/30/22 12/01/22 12/01/22 22:16 00:11 01:29 Temperature 37.1 C Heart Rate 79 79 Respiratory 20 16 16 Rate Blood Pressure 147/101 H 147/88 H O2 Saturation 100 100 Oxygen O2 Source Room air - Labs Labs: Laboratory Tests 11/30/22 11/30/22 11/30/22 21:37 21:37 22:12 WBC 10.8 RBC 4.76 Hgb 14.0 Hct 41.0 MCV 86.1 MCH 29.4 MCHC 34.1 RDW 12.5 Plt Count 308 MPV 8.5 Neut # (Auto) 5.7 Lymph # (Auto) 4.1 H Elk # (Auto) 0.7 Eos # (Auto) 0.1 Baso # (Auto) 0.1 Absolute Nucleated RBC 0.00 Nucleated RBC % 0.0 Sodium 141 Potassium 3.3 L Chloride 108 Carbon Dioxide 24 Anion Gap 9.0 BUN 11 Creatinine 0.8 Estimated GFR (MDRD) 80 L Glucose 97 Calcium 9.1 Total Bilirubin 0.6 AST 16 ALT 19 Alkaline Phosphatase 45 Total Protein 7.6 Albumin 4.4 Globulin 3.2 Albumin/Globulin Ratio 1.4 Lipase 38 Urine Color DARK YELLOW Urine Clarity HAZY Urine pH 6.0 Ur Specific [place] >=1.030 H Urine Protein 30 H Urine Glucose (UA) NEGATIVE Urine Ketones NEGATIVE Urine Occult Blood LARGE H Urine Nitrite NEGATIVE Urine Bilirubin NEGATIVE Urine Urobilinogen 0.2 (NORMAL) Ur Leukocyte Esterase NEGATIVE Urine RBC TNTC H Urine WBC 0-3 Ur Epithelial Cells FEW Transitional Ur Squamous Epith Cells FEW Squamous Urine Bacteria Rare Ur Microscopic Review INDICATED Urine Culture Comments NOT INDICATED Urine HCG, Qual 11/30/22 22:12 WBC RBC Hgb Hct MCV MCH MCHC RDW Plt Count MPV Neut # (Auto) Lymph # (Auto) [place] # (Auto) Eos # (Auto) Baso # (Auto) Absolute Nucleated RBC Nucleated RBC % Sodium Potassium Chloride Carbon Dioxide Anion Gap BUN Creatinine Estimated GFR (MDRD) Glucose Calcium Total Bilirubin AST ALT Alkaline Phosphatase Total Protein Albumin Globulin Albumin/Globulin Ratio Lipase Urine Color Urine Clarity Urine pH Ur Specific [place] Urine Protein Urine Glucose (UA) Urine Ketones Urine Occult Blood Urine Nitrite Urine Bilirubin Urine Urobilinogen Ur Leukocyte Esterase Urine RBC Urine WBC Ur Epithelial Cells Ur Squamous Epith Cells Urine Bacteria Ur Microscopic Review Urine Culture Comments Urine HCG, Qual NEGATIVE - Rads (name of study) CT abdomen pelvis Relevant Findings:: Final report received, See rad report (Fluid-filled structure adjacent To right ovary, no stranding or soft tissue changes consistent with infection.) PD Medical Decision Making - ED course Complexity details: reviewed results, re-evaluated patient, considered differential, d/w patient ED course: The patient was worked up with CBC, ER abdominal panel, and urinalysis, as well as CT scan of the abdomen and pelvis. She declined symptomatic management while in the emergency department. I reviewed the patient's labs and patient was found to have a normal white blood cell count. Her CT showed a small fluid collection adjacent to the ovary in the right but this did not demonstrate stranding or any other infectious appearing changes. The patient was stable for discharge home. I am not exactly sure what is caused her low-grade fever, but there is no evidence of a serious infection. Her urinalysis is negative with a normal white blood cell count, and at this point in time, I do not find indication for antibiotics. The patient will follow up with her gynecologic surgeon, we have discussed the usual indications for return. Departure - Departure Disposition: Home, Self Care Clinical Impression: Post-op pain Fever Qualifiers: Fever type: unspecified Qualified Code(s): R50.9 - Fever, unspecified Condition: Stable Instructions: ED Fever Unconf Cause, ED Post Op Pain Comments: At this point in time, your labs look good. Your urinalysis does not show any infection, and your CT does not show any evidence of infection either. You do have a bit of fluid collection adjacent to your ovary and this may be postopera tive inflammatory fluid. There is no evidence of tissue changes around the area to indicate development of infection at this time. However, if you begin to notice that the pain is growing steadily worse with heightening fever, you will need to call your surgeon or return for recheck. For now, you may take ibuprofen and Tylenol to help with discomfort and fever and continue your postoperative follow-up plans. Forms: Activity restrictions Discharge Date/Time: 12/01/22 01:30
[2022-11-30 22:24] LABS: BILIRUBIN,URINE NEGATIVE (NEGATIVE); GLUCOSE, URINE (UA) NEGATIVE (NEGATIVE); KETONES,URINE (UA) NEGATIVE (NEGATIVE); LEUKOCYTE ESTERASE, URINE NEGATIVE (NEGATIVE); NITRITE,URINE NEGATIVE (NEGATIVE); OCCULT BLOOD,URINE LARGE (NEGATIVE); PROTEIN,URINE 30 mg/dL (NEGATIVE); UROBILINOGEN,URINE 0.2 (NORMAL) E.U./dL (NORMAL)
[2022-11-30 22:26] LABS: CLARITY,URINE HAZY (CLEAR)
[2022-11-30 22:27] LABS: HCG UR QUAL NEGATIVE
[2022-11-30 22:33] LABS: BACTERIA,URINE Rare /HPF (None Seen); EPITHELIAL CELLS,UR FEW Transitional /HPF (<= Few); RBC,URINE TNTC /HPF (0-5); SQUAMOUS EPITHELIAL CELL,UR FEW Squamous (<= Few); WBC,URINE 0-3 /HPF (0-5)
[2022-11-30] MEDS ORDERED: iohexoL-300 100 ML VIAL ONE (23:38)
[2022-12-01] MEDS ORDERED: iohexoL-300 100 ML VIAL IVP ONE (00:05)
--- NOTE | 2022-12-01 00:25 | CT Report ---
PROCEDURE: ABDOMEN/PELVIS W INDICATIONS: RLQ post-op pain CONTRAST: Omni 300 100ml TECHNIQUE: After the administration of IV contrast, 5 mm thick sections acquired from the diaphragms to the symp hysis. 5 mm thick coronal and sagittal reformats were acquired. For radiation dose reduction, the f ollowing was used: automated exposure control, adjustment of mA and/or kV according to patient size. COMPARISON: FINDINGS: Image quality: Excellent. Lung bases and heart: Unremarkable. Liver: No solid mass. Gallbladder and biliary tree: Unremarkable Spleen: No splenomegaly. Pancreas: No pancreatic ductal dilation. Adrenals: No adrenal nodule. Kidneys and ureters: No hydronephrosis. No renal cystic lesion which requires follow up. No solid mas s. Bowel and peritoneum: No bowel distension. No pathologic free fluid. Appendix is normal. Lymph nodes: No central or retroperitoneal adenopathy. Vessels: No infrarenal aortic aneurysm. PELVIS Reproductive organs: Within the region of the right adnexa is a fluid-filled low-attenuation structur e measuring 3.4 cm. There is no appreciable surrounding inflammatory change. Bladder: No abnormal wall thickening, accounting for underdistension. Pelvic lymph nodes: No pelvic adenopathy by size criteria. Bones: No aggressive osseous abnormality. Other: No significant ventral or inguinal hernia. IMPRESSION: Fluid-filled structure within the region of the right adnexa as above. It is suspected to be related to the ovary possibly complex cyst. However, overlying fluid-filled bowel loop cannot be definitively excluded. No surrounding inflammatory change. Recommend correlation to site of recent surgery and as clinically indicated, pelvic ultrasound may be obtained for further evaluation. Reviewed by: Steph Diaz MD on 12/01/2022 12:23 AM PDT Approved by: Steph Diaz MD on 12/01/2022 12:23 AM PDT Station ID: [id number]
[2022-12-01 01:31] VITALS: BP 147/88
== END 2022-12-01 01:30 | disposition home or self-care (01) ==
LOC: ED 21:10
DX: G89.18 Other acute postprocedural pain (principal); R10.31 Right lower quadrant pain; R50.9 Fever, unspecified; F17.200 Nicotine dependence, unspecified, uncomplicated; Z79.899 Other long term (current) drug therapy
CPT/HCPCS: 36415; 74177; 80053; 81001; 81025; 83690; 85025; 99283; 99284; Q9967; 81003; 87086

== ENCOUNTER 2023-03-07 13:54 | Outpatient (CLI) | payer OTHER ==
[2023-03-07 14:11] LABS: BASOPHILS # (AUTO) 0.1 10^3/uL (0.0-0.1); BASOPHILS % (AUTO) 0.6 %; EOSINOPHILS # (AUTO) 0.1 10^3/uL (0.0-0.7); EOSINOPHILS % (AUTO) 0.8 %; LYMPHOCYTES # (AUTO) 2.9 10^3/uL (1.5-3.5); LYMPHOCYTES % (AUTO) 25.9 %; MEAN CORPUSCULAR HEMOGLOBIN 29.6 pg (27.0-31.0); MEAN CORPUSCULAR HGB CONC 33.3 g/dL (32.0-36.0); MEAN CORPUSCULAR VOLUME 88.9 fL (81.0-99.0); MEAN PLATELET VOLUME 8.1 fL (7.9-10.8); MONOCYTES # (AUTO) 0.7 10^3/uL (0.0-1.0); NEUTROPHILS # (AUTO) 7.4 10^3/uL (1.5-6.6); NEUTROPHILS % (AUTO) 66.6 %; PLT - PLATELET COUNT 327 10^3/uL (130-450); RED BLOOD COUNT 5.06 10^6/uL (4.20-5.40); RED CELL DISTRIBUTION WIDTH 12.6 % (12.0-15.0); WHITE BLOOD COUNT 11.1 x10^3/uL (4.8-10.8)
[2023-03-07 15:18] LABS: THYROID STIMULATING HORMONE 1.67 uIU/mL (0.34-5.60)
[2023-03-07 15:23] LABS: PROLACTIN 14.78 ng/mL
== END 2023-03-07 13:55 | disposition home or self-care (01) ==
LOC: LAB 13:54
PROVIDERS: ATTEND Obstetrics & Gynecology
DX: O92.6 Galactorrhea (principal); R10.31 Right lower quadrant pain
CPT/HCPCS: 36415; 84146; 84443; 85025

== ENCOUNTER 2023-03-21 15:52 | Outpatient (CLI) | payer OTHER ==
--- NOTE | 2023-03-21 17:09 | Ultrasound Report ---
PROCEDURE: Pelvic w/Transvaginal INDICATIONS: RLQ ABD PAIN TECHNIQUE: Real-time scanning was performed of the pelvic organs, with image documentation. Additional endovagi nal scanning was necessary due to incomplete visualization of the adnexal and endometrial structures by transabdominal scanning. COMPARISON: None. FINDINGS: Uterus: Uterus is anteverted and normal in size at 11.7 x 4.9 x 5.8 cm. The myometrium is heterogen eous. The endometrium measures 10.1 mm in combined thickness. Ovaries: The right ovary measures 3.1 x 2.1 x 2.9 cm, with a calculated ovarian volume of 10 cc. Th e left ovary measures 4.2 x 3.1 x 3.6 cm, with a calculated ovarian volume of 2.4 cc. Thick-walled le ft ovarian cystic lesion measuring 3.9 x 3 x 3.4 cm. The left adnexal vasculature is prominent. The o varies have a normal sonographic appearance. Less than 12 follicles can be seen in each ovary. No a dnexal masses are seen. No cystic lesions measuring greater than 3 cm. Other: No pathologic free abdominal or pelvic fluid. IMPRESSION: Thick-walled left ovarian cystic lesion measuring 3.9 x 3 x 3.4 cm. Consider follow-up in 6-12 weeks. Reviewed by: Troy Juarez on 03/21/2023 5:07 PM PDT Approved by: Troy Juarez on 03/21/2023 5:07 PM PDT Station ID: [id number]
== END 2023-03-21 15:53 | disposition home or self-care (01) ==
LOC: DI 15:52
PROVIDERS: ATTEND Obstetrics & Gynecology
DX: N83.202 Unspecified ovarian cyst, left side (principal)

== ENCOUNTER 2023-08-04 21:08 | Emergency (ER) | payer OTHER ==
[2023-08-04 21:38] VITALS: BP 147/104; O2SAT 97
[2023-08-04 21:55] LABS: BILIRUBIN,URINE NEGATIVE (NEGATIVE); GLUCOSE, URINE (UA) NEGATIVE (NEGATIVE); KETONES,URINE (UA) TRACE mg/dL (NEGATIVE); LEUKOCYTE ESTERASE, URINE NEGATIVE (NEGATIVE); NITRITE,URINE NEGATIVE (NEGATIVE); OCCULT BLOOD,URINE LARGE (NEGATIVE); PH,URINE 5.5 PH (5.0-7.5); PROTEIN,URINE 100 mg/dL (NEGATIVE); UROBILINOGEN,URINE 0.2 (NORMAL) E.U./dL (NORMAL)
[2023-08-04 21:59] LABS: CLARITY,URINE TURBID (CLEAR); HCG UR QUAL NEGATIVE
[2023-08-04 22:02] LABS: BACTERIA,URINE Moderate /HPF (None Seen); RBC,URINE TNTC /HPF (0-5); SQUAMOUS EPITHELIAL CELL,UR RARE Squamous (<= Few)
--- NOTE | 2023-08-04 22:25 | ED Physician Documentation ---
PD HPI FEMALE - Stated complaint Stated Complaint: ROCK/ - Chief complaint Chief Complaint: UTI - History obtained from History obtained from: Patient - Additional information Additional information: Patient is a 38-year-old female presenting for evaluation of dysuria with urinary frequency and urgency starting this evening. She reports that around the time she was making dinner she noticed some discomfort with urination. After that she then noticed hematuria as well as urgency And frequency with only going small amounts. She also reports having a throbbing headache this evening.No exertion at time of onset. She has not tried anything for her symptoms. She also reports having lower back pain for the past 2 weeks. Also feels like a dull pain. Pain does not radiate and nothing makes it better or worse. No nausea, vomiting, abdominal pain.Denies fevers.Denies history of kidney stones and does not take a blood thinner. Review of Systems Constitutional: denies: Fever Cardiac: denies: Chest pain / pressure Respiratory: denies: Dyspnea GI: denies: Abdominal Pain : reports: Frequency, Hematuria. 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 : Other HEENT: None Psych: None Musculoskeletal: None Derm: None - Past Surgical History Past Surgical 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 /LANGUAGES AND LITERATURE INSTRUCTOR: section, Other HEENT: Tonsil/Adenoidectomy - Present Medications Home Medications: Ambulatory Orders Medication Instructions Recorded Confirmed Phenazopyridine HCl [Pyridium] 200 mg PO TID PRN #6 tablet 08/04/23 cephALEXin [Keflex] 500 mg PO Q6H #28 cap 08/04/23 - Allergies Allergies/Adverse Reactions: Allergies Allergy/AdvReac Type Severity Reaction Status Date / Time NSAIDS (Non-Steroidal Allergy Severe Anaphylaxis Verified 08/04/23 21:58 Anti-Inflamma Penicillins Allergy Severe Anaphylaxis Verified 08/04/23 21:58 hydrocodone [From [place]] Allergy Nausea Verified 08/04/23 21:58 - Social History Does the pt smoke?: Yes Smoking Status: Current every day smoker Does the pt drink ETOH?: No Does the pt have substance abuse?: No - Immunizations Immunizations are current?: Yes - POLST Patient has POLST: No PD ED PE NORMAL - General General: Alert and oriented X 3, No acute distress, Well developed/nourished - HEENT HEENT: Atraumatic, Moist mucous membranes, Pharynx benign - Neck Neck: Supple, no meningeal sign - Cardiac Cardiac: RRR, Strong equal pulses - Respiratory Respiratory: No respiratory distress, Clear bilaterally - Abdomen Abdomen: Normal bowel sounds, Soft, Non tender, Non distended - Back Back: No CVA TTP - Neuro Neuro: Alert and oriented X 3, No motor deficit, No sensory deficit, Normal speech, Other (Normal gait) Results - Vitals Vitals: Vital Signs - 24 hr 08/04/23 21:30 Temperature 36.9 C Heart Rate 95 Respiratory 16 Rate Blood Pressure 147/104 H O2 Saturation 97 Oxygen O2 Source Room air - Labs Labs: Laboratory Tests 08/04/23 21:26 Urine Color RED/BLOODY Urine Clarity TURBID Urine pH 5.5 Ur Specific [place] >=1.030 H Urine Protein 100 H Urine Glucose (UA) NEGATIVE Urine Ketones TRACE Urine Occult Blood LARGE H Urine Nitrite NEGATIVE Urine Bilirubin NEGATIVE Urine Urobilinogen 0.2 (NORMAL) Ur Leukocyte Esterase NEGATIVE Urine RBC TNTC H Urine WBC 6-10 H Ur Squamous Epith Cells RARE Squamous Urine Bacteria Moderate H Ur Microscopic Review INDICATED Urine Culture Comments NOT INDICATED Urine HCG, Qual NEGATIVE PD Medical Decision Making - ED course Complexity details: reviewed results, d/w patient ED course: Patient with UTI symptoms and hematuria noted this evening. Also reports having a headache today. Normal neuroexam and overall well-appearing. Benign abdominal exam. No CVA tenderness. Vital signs are stable. Urine analysis shows moderate bacteria along with hematuria. Discussed etiologies of the blood which could be from an infection given the bacteria as well as her symptoms. Also discussed possibility of a stone.Patient denies any significant pain here and would like to hold off on further workup for a kidney stone. She is agreeable to plan for antibiotic. She also understands importance of staying hydrated and will use acetaminophen for areas of pain. Patient counseled on need for close follow-up as well as concerning symptoms to return for. Departure - Departure Disposition: 01 Home, Self Care Clinical Impression: Urinary tract infection, Hematuria, Headache Condition: Stable Instructions: ED UTI Cystitis Female Prescriptions: cephALEXin [Keflex] 500 mg PO Q6H #28 cap Phenazopyridine HCl [Pyridium] 200 mg PO TID PRN #6 tablet PRN Reason: dysuria Comments: Your symptoms and urine analysis today show signs of an infection. I am starting you on an antibiotic I have sent this prescription to [facility] in [place]. Please make sure to complete the course of the antibiotic. I would also recommend follow-up with your primary care provider to ensure that the blood in the urine has resolved with treatment of the infection. If you develop any worsening symptoms such as fever, worsening back pain, headache or any other concerns then please return to the emergency department. Discharge Date/Time: 08/04/23 22:53
[2023-08-04] MEDS: cephALEXin 250 MG CAPSULE PO STA (22:31)
[2023-08-04] MEDS: ACETAMINOPHEN 500 MG TABLET PO STA (22:32)
[2023-08-04] MEDS: PHENAZOPYRIDINE 100 MG TABLET PO STA (22:32)
== END 2023-08-04 22:53 | disposition home or self-care (01) ==
LOC: ED 21:08
DX: N39.0 Urinary tract infection, site not specified (principal); R51.9 Headache, unspecified; R31.0 Gross hematuria; F17.200 Nicotine dependence, unspecified, uncomplicated
CPT/HCPCS: 81001; 81025; 87086; 87181; 99283; A9270; 81003

== ENCOUNTER 2023-08-08 20:07 | Emergency (ER) | payer OTHER ==
[2023-08-08 20:43] VITALS: BP 160/97; O2SAT 98
--- NOTE | 2023-08-08 21:07 | ED Physician Documentation ---
PD HPI HEENT - Stated complaint Stated Complaint: L EAR PX,FEVER - Chief complaint Chief Complaint: Fever - History obtained from History obtained from: Patient - Additional information Additional information: The patient comes to the emergency department chief complaint of left ear pain that started couple of days ago when the weather was really cold. The patient states she was diagnosed with a UTI around that same time and started on Keflex for it. She states that her ear pain seems worse today and she can feel it behind her ear. She also had a fever of 102 and was concerned that she may have an ear infection. The patient denies any other upper respiratory symptoms. No ear drainage. She is not a swimmer. She states that her UTI symptoms actually are better for the most part. She still has a little bit of urgency but no dysuria or frequency and no back pain. She also states that she had had some hematuria when the symptoms first came on but this is resolved since taking antibiotics. No other complaints at this time. 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 HEENT: None Psych: None Musculoskeletal: None Derm: None - Past Surgical History Past Surgical 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 /ANIMAL HUSBANDRY PROFESSOR: section, Other HEENT: Tonsil/Adenoidectomy - Present Medications Home Medications: Ambulatory Orders Medication Instructions Recorded Confirmed Phenazopyridine HCl [Pyridium] 200 mg PO TID PRN #6 tablet 08/04/23 08/08/23 cephALEXin [Keflex] 500 mg PO Q6H #28 cap 08/04/23 08/08/23 cephALEXin [Keflex] 500 mg PO Q6H #28 cap 08/08/23 - Allergies Allergies/Adverse Reactions: Allergies Allergy/AdvReac Type Severity Reaction Status Date / Time NSAIDS (Non-Steroidal Allergy Severe Anaphylaxis Verified 08/04/23 21:58 Anti-Inflamma Penicillins Allergy Severe Anaphylaxis Verified 08/04/23 21:58 hydrocodone [From [place]] Allergy Nausea Verified 08/04/23 21:58 - Social History Does the pt smoke?: Yes Smoking Status: Current every day smoker Does the pt drink ETOH?: No Does the pt have substance abuse?: No - Immunizations Immunizations are current?: Yes - POLST Patient has POLST: No PD ED PE NORMAL - Vitals Vital signs reviewed: Yes - General General: Alert and oriented X 3, No acute distress, Well developed/nourished - HEENT HEENT: Atraumatic, PERRL, EOMI, Moist mucous membranes, Other (Some slight edema of the left external auditory canal without erythema. The patient has pain upon insertion of the otoscope. Tympanic membrane normal. [place] posterior auricular lymph node noted.) - Neck Neck: Supple, no meningeal sign - Respiratory Respiratory: No respiratory distress - Derm Derm: Normal color, Warm and dry, No rash - Extremities Extremities: No deformity - Neuro Neuro: Alert and oriented X 3, Other (Grossly intact) - Psych Psych: Normal mood, Normal affect Results - Vitals Vitals: Vital Signs - 24 hr 08/08/23 20:34 Temperature 36.9 C Heart Rate 107 H Respiratory 17 Rate Blood Pressure 160/97 H O2 Saturation 98 Oxygen O2 Source Room air PD Medical Decision Making - ED course Complexity details: reviewed results, re-evaluated patient, considered differential, d/w patient ED course: The patient's UTI symptoms had not worsened at all and in fact, had improved during her 2 days on Keflex. I reviewed her micro and sensitivities which showed greater than 100,000 CFU's of E. coli, pansensitive. I discussed with the patient that I think she should stay on the same antibiotic she is on. She does not have any other symptoms to indicate a viral illness, and I do not find any evidence of any form of otitis. At this point in time, we will continue the treatment she is already on, but we have discussed that if she develops escalating urinary symptoms, abdominal pain, or other more specific symptoms, or is just generally worsening, that she should be reevaluated. Departure - Departure Disposition: 01 Home, Self Care Clinical Impression: Urinary tract infection Qualifiers: Urinary tract infection type: acute cystitis Hematuria presence: without hematuria Qualified Code(s): N30.00 - Acute cystitis without hematuria Acute otalgia Qualifiers: Laterality: left Qualified Code(s): H92.02 - Otalgia, left ear Condition: Stable Instructions: ED UTI Cystitis Female Prescriptions: cephALEXin [Keflex] 500 mg PO Q6H #28 cap Comments: Your microbiology and sensitivities have been reviewed, and it appears that your urine was infected with E. coli that is sensitive to all the expected antibiotics, including the one you are on. As such, this is expected to be effective as long as it is being taken as directed. Please continue to take the Keflex every day, according to directions, until the course is complete. As far as your ear pain, there is no evidence of an infection behind your eardrum, and although your external canal is puffy, there is no real evidence of infection of that, either. You do have a mildly enlarged lymph node behind her ear which could certainly be responsible for some of the pain sensation you are feeling. If you begin to have worsening pain and drainage, then you should get the ear rechecked. Similarly, if you feel like you are urinary symptoms are escalating again, or you are just generally feeling worse and continuing to run fevers, then please do not hesitate to come in for reevaluation. At this point in time, it is not clear what is causing your fever. This could be that body's continued response to the urinary tract infection you are working through, or it is possible that you have picked up one of the many viral infections that are going around right now and cause fever. If this is the case, this would be expected to ultimately run its course and go away on its own. Please follow-up with your primary care physician as needed. Forms: PCP List
== END 2023-08-08 21:25 | disposition home or self-care (01) ==
LOC: ED 20:07
DX: N30.00 Acute cystitis without hematuria (principal); H92.02 Otalgia, left ear; F17.200 Nicotine dependence, unspecified, uncomplicated
CPT/HCPCS: 99281; 99283

== ENCOUNTER 2023-10-20 19:16 | Emergency (ER) | payer OTHER ==
[2023-10-20 19:26] VITALS: O2SAT 100
[2023-10-20 19:51] LABS: BASOPHILS # (AUTO) 0.1 10^3/uL (0.0-0.1); BASOPHILS % (AUTO) 0.8 %; EOSINOPHILS # (AUTO) 0.1 10^3/uL (0.0-0.7); EOSINOPHILS % (AUTO) 0.8 %; HCT - HEMATOCRIT 47.2 % (37.0-47.0); HGB - HEMOGLOBIN 15.5 g/dL (12.0-16.0); LYMPHOCYTES # (AUTO) 3.1 10^3/uL (1.5-3.5); LYMPHOCYTES % (AUTO) 30.3 %; MEAN CORPUSCULAR HEMOGLOBIN 29.3 pg (27.0-31.0); MEAN CORPUSCULAR HGB CONC 32.8 g/dL (32.0-36.0); MEAN CORPUSCULAR VOLUME 89.2 fL (81.0-99.0); MEAN PLATELET VOLUME 9.4 fL (7.9-10.8); MONOCYTES # (AUTO) 0.5 10^3/uL (0.0-1.0); NEUTROPHILS # (AUTO) 6.4 10^3/uL (1.5-6.6); NEUTROPHILS % (AUTO) 62.8 %; PLT - PLATELET COUNT 342 10^3/uL (130-450); RED BLOOD COUNT 5.29 10^6/uL (4.20-5.40); RED CELL DISTRIBUTION WIDTH 12.7 % (12.0-15.0); WHITE BLOOD COUNT 10.2 x10^3/uL (4.8-10.8)
[2023-10-20 20:38] LABS: BILIRUBIN,URINE NEGATIVE (NEGATIVE); GLUCOSE, URINE (UA) NEGATIVE (NEGATIVE); KETONES,URINE (UA) NEGATIVE (NEGATIVE); LEUKOCYTE ESTERASE, URINE NEGATIVE (NEGATIVE); NITRITE,URINE NEGATIVE (NEGATIVE); OCCULT BLOOD,URINE NEGATIVE (NEGATIVE); PH,URINE 5.5 PH (5.0-7.5); PROTEIN,URINE NEGATIVE (NEGATIVE); UROBILINOGEN,URINE 0.2 (NORMAL) E.U./dL (NORMAL)
[2023-10-20 20:39] LABS: CLARITY,URINE CLEAR (CLEAR)
[2023-10-20 20:44] LABS: BACTERIA,URINE None Seen /HPF (None Seen); HCG UR QUAL NEGATIVE; RBC,URINE 0-5 /HPF (0-5); SQUAMOUS EPITHELIAL CELL,UR RARE Squamous (<= Few); WBC,URINE 0-3 /HPF (0-5)
--- NOTE | 2023-10-20 20:53 | ED Physician Documentation ---
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: Ovarian cysts : Other HEENT: None Psych: None Musculoskeletal: None Derm: None - Past Surgical History Past Surgical 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 /MEDICAL ASSISTING PROGRAM DIRECTOR: section, Other HEENT: Tonsil/Adenoidectomy - Present Medications Home Medications: Ambulatory Orders Medication Instructions Recorded Confirmed No Known Home Medications 10/20/23 10/20/23 - Allergies Allergies/Adverse Reactions: Allergies Allergy/AdvReac Type Severity Reaction Status Date / Time NSAIDS (Non-Steroidal Allergy Severe Anaphylaxis Verified 10/20/23 19:25 Anti-Inflamma Penicillins Allergy Severe Anaphylaxis Verified 10/20/23 19:25 hydrocodone [From [place]] Allergy Nausea Verified 10/20/23 19:25 - Social History Does the pt smoke?: Yes Smoking Status: Current every day smoker Does the pt drink ETOH?: No Does the pt have substance abuse?: No - Immunizations Immunizations are current?: Yes - POLST Patient has POLST: No Results - Vitals Vitals: Vital Signs - 24 hr 10/20/23 19:23 Temperature 36.2 C L Heart Rate 92 Respiratory 18 Rate Blood Pressure 152/99 H O2 Saturation 100 Oxygen O2 Source Room air - Labs Labs: Laboratory Tests 10/20/23 10/20/23 18:55 19:45 WBC 10.2 RBC 5.29 Hgb 15.5 Hct 47.2 H MCV 89.2 MCH 29.3 MCHC 32.8 RDW 12.7 Plt Count 342 MPV 9.4 Neut # (Auto) 6.4 Lymph # (Auto) 3.1 [place] # (Auto) 0.5 Eos # (Auto) 0.1 Baso # (Auto) 0.1 Absolute Nucleated RBC 0.00 Nucleated RBC % 0.0 Urine Color YELLOW Urine Clarity CLEAR Urine pH 5.5 Ur Specific [place] 1.015 Urine Protein NEGATIVE Urine Glucose (UA) NEGATIVE Urine Ketones NEGATIVE Urine Occult Blood NEGATIVE Urine Nitrite NEGATIVE Urine Bilirubin NEGATIVE Urine Urobilinogen 0.2 (NORMAL) Ur Leukocyte Esterase NEGATIVE Urine RBC 0-5 Urine WBC 0-3 Ur Squamous Epith Cells RARE Squamous Urine Bacteria None Seen Urine Culture Comments NOT INDICATED Urine HCG, Qual NEGATIVE Departure - Departure
[2023-10-20 22:02] LABS: ALBUMIN 4.6 g/dL (3.2-5.5); ALBUMIN/GLOBULIN RATIO 1.7 (1.0-2.2); BILIRUBIN,TOTAL 0.4 mg/dL (0.2-1.0); CALCIUM 9.7 mg/dL (8.5-10.3); CREATININE 0.7 mg/dL (0.6-1.3); POTASSIUM 3.6 mmol/L (3.5-4.5); TOTAL PROTEIN 7.3 g/dL (6.4-8.9)
[2023-10-20] MEDS: ACETAMINOPHEN 325 MG TABLET PO STA (22:39)
--- NOTE | 2023-10-21 00:13 | ED Physician Documentation ---
History of Present Illness - Stated complaint Stated Complaint: R ABD PX - Chief complaint Chief Complaint: Abd Pain - History obtained from History obtained from: Patient - Additonal information Additional information: 38yF with pmh ovarian cyst s/p R lap cystectomy, psh c section, p/w Right lower abdominal pain for the past week with associated nausea and diarrhea with 1 episode of vomiting today. No blood in vomitus or diarrhea. LMP 5/8. Patient denies urinary symptoms, back pain or fever. She has been having chills. 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: Ovarian cysts : Other HEENT: None Psych: None Musculoskeletal: None Derm: None - Past Surgical History Past Surgical 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 /MUNICIPAL SERVICES MANAGER: section, Other HEENT: Tonsil/Adenoidectomy - Present Medications Home Medications: Ambulatory Orders Medication Instructions Recorded Confirmed No Known Home Medications 10/20/23 10/20/23 - Allergies Allergies/Adverse Reactions: Allergies Allergy/AdvReac Type Severity Reaction Status Date / Time NSAIDS (Non-Steroidal Allergy Severe Anaphylaxis Verified 10/20/23 19:25 Anti-Inflamma Penicillins Allergy Severe Anaphylaxis Verified 10/20/23 19:25 hydrocodone [From [place]] Allergy Nausea Verified 10/20/23 19:25 - Social History Does the pt smoke?: Yes Smoking Status: Current every day smoker Does the pt drink ETOH?: No Does the pt have substance abuse?: No - Immunizations Immunizations are current?: Yes - POLST Patient has POLST: No PD ED PE NORMAL - Vitals Vital signs reviewed: Yes - General General: Alert and oriented X 3, No acute distress, Well developed/nourished - HEENT HEENT: Atraumatic, PERRL, EOMI - Neck Neck: Supple, no meningeal sign - Cardiac Cardiac: RRR - Respiratory Respiratory: No respiratory distress, Clear bilaterally - Abdomen Abdomen: Non tender, Non distended - Derm Derm: Normal color, Warm and dry - Extremities Extremities: No deformity Results - Vitals Vitals: Vital Signs - 24 hr 10/20/23 10/20/23 10/21/23 19:23 21:52 00:21 Temperature 36.2 C L Heart Rate 92 82 82 Respiratory 18 16 16 Rate Blood Pressure 152/99 H 143/90 H 140/96 H O2 Saturation 100 100 100 Oxygen O2 Source Room air - Labs Labs: Laboratory Tests 10/20/23 10/20/23 10/20/23 18:55 19:45 21:39 WBC 10.2 RBC 5.29 Hgb 15.5 Hct 47.2 H MCV 89.2 MCH 29.3 MCHC 32.8 RDW 12.7 Plt Count 342 MPV 9.4 Neut # (Auto) 6.4 Lymph # (Auto) 3.1 [place] # (Auto) 0.5 Eos # (Auto) 0.1 Baso # (Auto) 0.1 Absolute Nucleated RBC 0.00 Nucleated RBC % 0.0 Sodium 139 Potassium 3.6 Chloride 106 Carbon Dioxide 25 Anion Gap 8.0 BUN 17 Creatinine 0.7 Estimated GFR (MDRD) 93 Glucose 92 Calcium 9.7 Total Bilirubin 0.4 AST 13 ALT 14 Alkaline Phosphatase 56 Total Protein 7.3 Albumin 4.6 Globulin 2.7 Albumin/Globulin Ratio 1.7 Urine Color YELLOW Urine Clarity CLEAR Urine pH 5.5 Ur Specific [place] 1.015 Urine Protein NEGATIVE Urine Glucose (UA) NEGATIVE Urine Ketones NEGATIVE Urine Occult Blood NEGATIVE Urine Nitrite NEGATIVE Urine Bilirubin NEGATIVE Urine Urobilinogen 0.2 (NORMAL) Ur Leukocyte Esterase NEGATIVE Urine RBC 0-5 Urine WBC 0-3 Ur Squamous Epith Cells RARE Squamous Urine Bacteria None Seen Urine Culture Comments NOT INDICATED Urine HCG, Qual NEGATIVE PD Medical Decision Making - ED course ED course: 38-year-old woman presents with right lower abdominal pain for the past week or any abdominal guarding or rigidity to indicate appendicitis. hCG negative therefore not an ectopic . Again, no guarding or rigidity therefore unlikely ovarian torsion. Ultrasound shows good flow to both ovaries send she does have a left ovarian cyst. She can follow-up with her HARDWARE ENGINEERING MANAGER. Return precautions given. Departure - Departure Disposition: 01 Home, Self Care Clinical Impression: Abdominal pain, Ovarian cyst Condition: Stable Instructions: Abdominal Pain Follow-Up: Arcadio Ramirez MD [Provider Admit Priv/Credential] - Comments: You were seen in the emergency department for lower abdominal pain. Your ultrasound showed a L ovarian complex cyst and you should follow up with ob-cardiovascular surgical tech in regards to this. Your labwork was normal. Please follow-up with your primary care provider as well and return to the emergency department if you have any new or worsening symptoms or other concerns. Forms: PCP List Discharge Date/Time: 10/21/23 00:22
--- NOTE | 2023-10-21 00:20 | Ultrasound Report ---
PROCEDURE: Pelvic w/Doppler Complete INDICATIONS: RLQ pain, hx cysts TECHNIQUE: Real-time scanning was performed of the pelvic organs, with image documentation. Additional endovagi nal scanning was necessary due to incomplete visualization of the adnexal and endometrial structures by transabdominal scanning. COMPARISON: Pelvic ultrasound 03/21/2023. CT abdomen pelvis 11/22/2022. FINDINGS: Uterus: Uterus is anteverted and normal in size at 9.9 x 4.8 x 4.2 cm. The myometrium is heterogene ous. The endometrium measures 8 mm in combined thickness. No fibroids. Ovaries: The right ovary measures 1.4 x 1.1 x 1.1 cm, with a calculated ovarian volume of 8 cc. The left ovary measures 3.1 x 2 x 1.8 cm, with a calculated ovarian volume of 9 cc. Blood flow in the ov katy appear symmetric. Less than 12 follicles can be seen in each ovary. Questionable hypodense focu s at the left ovary measuring 2.4 x 2 x 1.8 cm. No internal vascularity. Other: Small amount of free fluid in the pelvic cul-de-sac. IMPRESSION: 1. No significant right ovarian cyst. No free fluid. 2. Possible complex cyst in the left ovary measuring 2.4 cm. Consider follow-up pelvic ultrasound in 6-12 weeks. 3. Endometrium measures 8 mm. Reviewed by: Brian Galicia MD on 10/21/2023 12:19 AM PDT Approved by: Brian Galicia MD on 10/21/2023 12:19 AM PDT Station ID: [id number]
[2023-10-21 00:32] VITALS: BP 140/96
== END 2023-10-21 00:22 | disposition home or self-care (01) ==
LOC: ED 19:16
DX: R10.31 Right lower quadrant pain (principal); N83.202 Unspecified ovarian cyst, left side; F17.200 Nicotine dependence, unspecified, uncomplicated; Z32.02 Encounter for pregnancy test, result negative
CPT/HCPCS: 36415; 76856; 80053; 81001; 81025; 85025; 93975; 99283; 99284; A9270; 87086

== ENCOUNTER 2023-11-20 12:30 | Outpatient (CLI) | payer OTHER ==
--- NOTE | 2023-11-20 15:51 | XRAY Report ---
PROCEDURE: Lumbar Spine 2-3V INDICATIONS: LOW BACK PAIN, UNSPECIFIED TECHNIQUE: 3 views of the lumbar spine were acquired. COMPARISON: None. FINDINGS: Surgical change: None. Bones: 5 [id number] vertebrae are present. There is normal bony alignment. No vertebral body co mpression fractures. No suspicious bony lesions. Mild degenerative disc disease at L2-L3, L3-L4 and L4-L5. Mild facet arthropathy at L3-L4, L4-L5 and L5-S1. Soft tissues: Overlying bowel gas pattern is normal. No suspicious soft tissue calcifications. IMPRESSION: 1. Mild degenerative disc and facet disease in lumbar spine. Reviewed by: Yessy Renner MD on 11/20/2023 3:49 PM PDT Approved by: Yessy Renner MD on 11/20/2023 3:49 PM PDT Station ID: [id number]
== END 2023-11-20 12:45 | disposition home or self-care (01) ==
LOC: DI.N 12:30
PROVIDERS: ATTEND Nurse Practitioner
DX: M51.36 Other intervertebral disc degeneration, lumbar region (principal); M47.816 Spondylosis without myelopathy or radiculopathy, lumbar region; M47.817 Spondylosis without myelopathy or radiculopathy, lumbosacral region

== ENCOUNTER 2023-12-28 17:21 | Emergency (ER) | payer OTHER ==
--- NOTE | 2023-12-28 17:48 | ED Physician Documentation ---
PD HPI FEMALE - Stated complaint Stated Complaint: r ovarian px, spotting, 7 weeks pg - Chief complaint Chief Complaint: Abd Pain - Additional information Additional information: 38-year-old female G5, P3 reports that she is about 7 weeks from last known menses. Patient reports that she has history of ovarian cysts as well as PCOS and she has had 2 ovarian cyst removed in the past. She has [facility] and they told her to come in today because has been having worsening right pelvic pain she is worried about a recurrent right ovarian cyst. She also has been having some very scant vaginal bleeding over the last 4 hours her right pelvic has increased in severity. 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 : Other HEENT: None Psych: None Musculoskeletal: None Derm: None - Past Surgical History Past Surgical 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 /CARBURETOR EXPERT: section, Other HEENT: Tonsil/Adenoidectomy - Present Medications Home Medications: Ambulatory Orders Medication Instructions Recorded Confirmed cephALEXin [Keflex] 500 mg PO TID 4 Days #12 cap 12/28/23 - Allergies Allergies/Adverse Reactions: Allergies Allergy/AdvReac Type Severity Reaction Status Date / Time NSAIDS (Non-Steroidal Allergy Severe Anaphylaxis Verified 12/28/23 17:25 Anti-Inflamma Penicillins Allergy Severe Anaphylaxis Verified 12/28/23 17:25 hydrocodone [From [place]] Allergy Nausea Verified 12/28/23 17:25 - Social History Does the pt smoke?: Yes Smoking Status: Current every day smoker Does the pt drink ETOH?: No Does the pt have substance abuse?: No - Immunizations Immunizations are current?: Yes - POLST Patient has POLST: No PD ED PE NORMAL - Vitals Vital signs reviewed: Yes - General General: Alert and oriented X 3, No acute distress, Well developed/nourished - Respiratory Respiratory: No respiratory distress, Clear bilaterally - Abdomen Abdomen: Normal bowel sounds, Soft, Non distended, No organomegaly, Other (right pelvic pain) - Back Back: No CVA TTP - Derm Derm: Normal color, Warm and dry, No rash Results - Vitals Vitals: Vital Signs - 24 hr 12/28/23 12/28/23 12/28/23 17:25 18:09 19:30 Temperature 36.5 C Heart Rate 100 96 94 Respiratory 16 20 16 Rate Blood Pressure 150/96 H 140/95 H 136/98 H O2 Saturation 100 95 100 12/28/23 20:18 Temperature Heart Rate 90 Respiratory 16 Rate Blood Pressure 133/88 H O2 Saturation 100 Oxygen O2 Source Room air - Labs Labs: Laboratory Tests 12/28/23 12/28/23 12/28/23 17:30 19:04 19:04 WBC RBC Hgb Hct MCV MCH MCHC RDW Plt Count MPV Neut # (Auto) Lymph # (Auto) [place] # (Auto) Eos # (Auto) Baso # (Auto) Absolute Nucleated RBC Nucleated RBC % Sodium 136 Potassium 3.8 Chloride 103 Carbon Dioxide 25 Anion Gap 8.0 BUN 13 Creatinine 0.7 Estimated GFR (MDRD) 93 Glucose 75 Calcium 9.9 Total Bilirubin 0.7 AST 25 ALT 30 Alkaline Phosphatase 53 Total Protein 8.2 Albumin 5.2 Globulin 3.0 Albumin/Globulin Ratio 1.7 Lipase 52 Beta HCG, Quant 54720.4 Urine Color YELLOW Urine Clarity CLEAR Urine pH 6.0 Ur Specific [place] 1.010 Urine Protein NEGATIVE Urine Glucose (UA) NEGATIVE Urine Ketones NEGATIVE Urine Occult Blood SMALL H Urine Nitrite NEGATIVE Urine Bilirubin NEGATIVE Urine Urobilinogen 0.2 (NORMAL) Ur Leukocyte Esterase SMALL H Urine RBC 0-5 Urine WBC 4-5 Ur Squamous Epith Cells FEW Squamous Urine Bacteria Few Ur Microscopic Review INDICATED Urine Culture Comments INDICATED Blood Type O POSITIVE 12/28/23 19:04 WBC 14.0 H RBC 5.05 Hgb 15.0 Hct 45.0 MCV 89.1 MCH 29.7 MCHC 33.3 RDW 13.0 Plt Count 364 MPV 8.3 Neut # (Auto) 9.8 H Lymph # (Auto) 3.0 [place] # (Auto) 1.1 H Eos # (Auto) 0.0 Baso # (Auto) 0.1 Absolute Nucleated RBC 0.00 Nucleated RBC % 0.0 Sodium Potassium Chloride Carbon Dioxide Anion Gap BUN Creatinine Estimated GFR (MDRD) Glucose Calcium Total Bilirubin AST ALT Alkaline Phosphatase Total Protein Albumin Globulin Albumin/Globulin Ratio Lipase Beta HCG, Quant Urine Color Urine Clarity Urine pH Ur Specific [place] Urine Protein Urine Glucose (UA) Urine Ketones Urine Occult Blood Urine Nitrite Urine Bilirubin Urine Urobilinogen Ur Leukocyte Esterase Urine RBC Urine WBC Ur Squamous Epith Cells Urine Bacteria Ur Microscopic Review Urine Culture Comments Blood Type - Rads (name of study) First trimester ultrasound Relevant Findings:: Final report received, EMP independent interpretation of te st, Other ( of uncertain viability likely early gestation does not appear to be ectopic and small 2 cm cyst to right ovary.) PD Medical Decision Making - ED course ED course: 38-year-old female presents emergency department for right pelvic pain and tenderness. Patient says this feels similar to previous times she has had ovarian cyst. She does have slight leukocytosis 14.0 no anemia no electrolyte abnormalities. hCG quant is over 18,000. Urine does appear to have small leukocytes and was sent to lab for further cultures. Went ahead and started patient on Keflex for asymptomatic urinary tract infection prescription sent to her preferred pharmacy. Ultrasound does not reveal ectopic although it is of uncertain viability and likely early gestation. Patient has an appoint with [facility] tomorrow for further evaluation all questions answered return precautions given patient safe for discharge at this time. Departure - Departure Disposition: 01 Home, Self Care Clinical Impression: Corpus luteum cyst of right ovary, UTI in Instructions: Cysts Ovarian, ED UTI Cystitis Female Prescriptions: cephALEXin [Keflex] 500 mg PO TID 4 Days #12 cap Comments: Thank you for trusting us with your care. Your hCG quant is 18,884. Ultrasound shows that you have a very small 2 cm corpus luteum cyst on your right ovary. Your urine does look like you have a very small amount of leukocytes we will go ahead and treat as an asymptomatic UTI. Prescription of Keflex was sent to your preferred pharmacy you will take this 3 times a day for the next 4 days. Please follow-up with your [facility] tomorrow about today's ER visit and discuss with them if they want to repeat your hCG or ultrasound in a week or 2. Please come back to ER for having any worsening symptoms heavy vaginal bleeding or any other emergent concerning symptoms. Forms: PCP List Discharge Date/Time: 12/28/23 20:19
[2023-12-28 18:27] LABS: BILIRUBIN,URINE NEGATIVE (NEGATIVE); GLUCOSE, URINE (UA) NEGATIVE (NEGATIVE); KETONES,URINE (UA) NEGATIVE (NEGATIVE); LEUKOCYTE ESTERASE, URINE SMALL (NEGATIVE); NITRITE,URINE NEGATIVE (NEGATIVE); OCCULT BLOOD,URINE SMALL (NEGATIVE); PROTEIN,URINE NEGATIVE (NEGATIVE); UROBILINOGEN,URINE 0.2 (NORMAL) E.U./dL (NORMAL)
[2023-12-28 18:28] LABS: CLARITY,URINE CLEAR (CLEAR)
[2023-12-28 18:35] LABS: RBC,URINE 0-5 /HPF (0-5); SQUAMOUS EPITHELIAL CELL,UR FEW Squamous (<= Few)
[2023-12-28 18:36] LABS: BACTERIA,URINE Few /HPF (None Seen)
[2023-12-28 19:07] LABS: BASOPHILS # (AUTO) 0.1 10^3/uL (0.0-0.1); BASOPHILS % (AUTO) 0.5 %; EOSINOPHILS % (AUTO) 0.2 %; LYMPHOCYTES % (AUTO) 21.4 %; MEAN CORPUSCULAR HEMOGLOBIN 29.7 pg (27.0-31.0); MEAN CORPUSCULAR HGB CONC 33.3 g/dL (32.0-36.0); MEAN CORPUSCULAR VOLUME 89.1 fL (81.0-99.0); MEAN PLATELET VOLUME 8.3 fL (7.9-10.8); MONOCYTES # (AUTO) 1.1 10^3/uL (0.0-1.0); MONOCYTES % (AUTO) 7.6 %; NEUTROPHILS # (AUTO) 9.8 10^3/uL (1.5-6.6); PLT - PLATELET COUNT 364 10^3/uL (130-450); RED BLOOD COUNT 5.05 10^6/uL (4.20-5.40)
[2023-12-28 19:25] LABS: ALBUMIN 5.2 g/dL (3.2-5.5); ALBUMIN/GLOBULIN RATIO 1.7 (1.0-2.2); BILIRUBIN,TOTAL 0.7 mg/dL (0.2-1.0); CALCIUM 9.9 mg/dL (8.5-10.3); CREATININE 0.7 mg/dL (0.6-1.3); POTASSIUM 3.8 mmol/L (3.5-4.5); TOTAL PROTEIN 8.2 g/dL (6.4-8.9)
[2023-12-28 19:43] VITALS: O2SAT 100
--- NOTE | 2023-12-28 19:58 | Ultrasound Report ---
PROCEDURE: OB 1st Trimester w/TV INDICATIONS: right ovarian pain, r/o ectopic OUTSIDE/PRIOR DATING DATA: Last menstrual period (LMP): 11/08/2022. LMP-based estimated date of delivery (CHARLENE): 08/15/2024. First dating scan (date and location): Today's exam. Estimated date of delivery (CHARLENE) from first dating scan: 08/21/2024. TECHNIQUE: Real-time scanning was performed of the fetus and maternal pelvic organs, with image documentation. Endovaginal scanning was also performed to better visualize the fetus and maternal ovaries. COMPARISON: None. FINDINGS: Intrauterine gestational sac present. Embryo: Not visualized Heart rate: Not unremarkable. Other: No perigestational fluid collection. Measurement variability in dating: +/- 4 weeks by LMP, +/- 7 days by mean sac diameter (use before 6 weeks gestation if crown-rump length not able to be measured), +/- 5 days by crown-rump length (6-12 weeks gestation). Maternal organs: Ovaries right-sided corpus luteum. IMPRESSION: of uncertain viability, likely an early gestation. Can consider repeat ultrasound in 14 day s for confirmation of viability. Reviewed by: Troy Juarez MD on 12/28/2023 7:56 PM PDT Approved by: Troy Juarez MD on 12/28/2023 7:56 PM PDT Station ID: [id number]
[2023-12-28] MEDS: cephALEXin 250 MG CAPSULE PO STA (20:12)
[2023-12-28 20:24] VITALS: BP 133/88
== END 2023-12-28 20:19 | disposition home or self-care (01) ==
LOC: ED 17:21
DX: O34.81 Maternal care for other abnormalities of pelvic organs, first trimester (principal); N83.11 Corpus luteum cyst of right ovary; O23.41 Unspecified infection of urinary tract in pregnancy, first trimester; N39.0 Urinary tract infection, site not specified; O99.331 Smoking (tobacco) complicating pregnancy, first trimester; Z3A.01 Less than 8 weeks gestation of pregnancy; F17.200 Nicotine dependence, unspecified, uncomplicated
CPT/HCPCS: 36415; 76801; 76817; 80053; 81001; 83690; 84702; 85025; 86900; 86901; 87086; 99284; A9270; 81003